=== PATIENT | male | born 1945 | race African-American/Black ===

== ENCOUNTER 2020-03-18 09:43 | Inpatient (IN) | payer OTHER ==
[~2020-03-18] VITALS: Ht 177.8 cm; Wt 107.3 kg
[2020-03-18 09:52] VITALS: BP 101/48
[2020-03-18] MEDS ORDERED: AMMONIUM LACTA385 GM TOP (10:48)
[2020-03-18] MEDS ORDERED: ALLOPURINOL 10100 M3 PO (10:48)
[2020-03-18] MEDS ORDERED: ASA81BEC PO (10:49)
[2020-03-18] MEDS ORDERED: REFRESH TEARS15 ML EA. EYE (10:52)
[2020-03-18] MEDS ORDERED: COLACE100 MG PO (10:53)
[2020-03-18] MEDS ORDERED: COREG6.25 MG PO (10:54)
[2020-03-18] MEDS ORDERED: DECADRON6 MG PO (10:57)
[2020-03-18 11:26] LABS: RBC 2.58 mil/uL (4.50-6.00)
[2020-03-18 11:28] LABS: ABSOLUTE NEUTROPHILS 9.9 thou/uL (1.4-8.2); BASOPHILS 0.2 % (0.0-2.0); EOSINOPHILS 0.1 % (0.0-3.0); HEMATOCRIT 22.8 % (42.0-52.0); HEMOGLOBIN 7.3 gm/dL (14.0-18.0); LYMPHOCYTES 5.1 % (24.0-44.0); MCH 28.3 pg (26.0-34.0); MCV 88.6 fL (80.0-100.0); MONOCYTES 5.9 % (1.0-8.0); PLATELET COUNT 228 thou/uL (150-400); POLYS 88.7 % (36.0-66.0); RDW 14.7 % (10.5-14.5); WBC 11.2 thou/uL (4.0-11.0)
[2020-03-18 11:40] LABS: CALCIUM 8.2 mg/dL (8.5-10.1); CREATININE 2.3 mg/dL (0.7-1.3); POTASSIUM 4.1 mmol/L (3.5-5.1)
[2020-03-18 11:45] LABS: ALBUMIN 2.4 g/dL (3.4-5.0); DIRECT BILIRUBIN 0.1 mg/dL (<0.1-0.2); TOTAL BILIRUBIN 0.4 mg/dL (0.2-1.0); TOTAL PROTEIN 6.7 g/dL (6.4-8.2)
[2020-03-18] MEDS ORDERED: NEURONTIN 400400 M1 PO (12:05)
[2020-03-18] MEDS ORDERED: GLUCOTROL5 MG PO (12:06)
[2020-03-18] MEDS ORDERED: HUMALOG100 UNIT/1 SUBQ (12:07)
[2020-03-18] MEDS ORDERED: LANTUS SUBQ (12:07)
[2020-03-18] MEDS ORDERED: LIDODERM1 EACH TOP (12:09)
[2020-03-18] MEDS ORDERED: LISINOPRIL20 MG PO (12:10)
[2020-03-18] MEDS ORDERED: ULTRAM 50MG TAB50 MG PO (12:11)
[2020-03-18] MEDS ORDERED: CRESTOR40 MG PO (12:11)
[2020-03-18 12:44] LABS: URINE BILIRUBIN NEGATIVE (Negative); URINE BLOOD 1+ (Negative); URINE CLARITY CLEAR; URINE COLOR YELLOW; URINE GLUCOSE-RANDOM* NEGATIVE (Negative); URINE KETONES NEGATIVE (Negative); URINE LEUKOCYTES-REFLEX NEGATIVE (Negative); URINE NITRITE-REFLEX NEGATIVE (Negative); URINE PROTEIN (DIPSTICK) NEGATIVE (Negative); URINE SPECIFIC GRAVITY 1.015 (1.005-1.035); URINE UROBILINOGEN 0.2 E.U./dl (0.2-1.0)
[2020-03-18 13:04] LABS: BACTERIA-REFLEX 1-9 Few /HPF (None Seen); CASTS None Seen /LPF (None Seen); MUCUS 4-6 Moderate strn/LPF (None Seen); SQUAMOUS 0-3 Few /LPF (0-3); URINE RBC 0-2 Rare /HPF (0-2); URINE WBC-REFLEX 0-5 Rare /HPF (0-5)
[2020-03-18 13:05] LABS: AMORPHOUS URATES Few /LPF (None Seen)
--- NOTE | 2020-03-18 14:22 | EKG ---
[place] [address] [facility] [place] [address] ELECTROCARDIOGRAM REPORT Name: STELLA GOMEZ Room #: REG DANE Reynoso#: [id number] Admission: 03/18/20 Attend Phys: Discharge: Date of : 43 Report #: [id number] [facility] ED Test Date: 2020-03-18 Test Time: 10:01:57 Pat Name: STELLA GOMEZ Department: Room: Gender: M Airplane Designer: ANA : 1945 Requested By: Gale Givens Order Number: [id number] MD: Dominick Bennett Measurements Intervals [place] Rate: 72 P: 17 DE: 160 QRS: -5 QRSD: 108 T: 18 QT: 404 QTc: 443 Interpretive Statements Sinus rhythm Left ventricular hypertrophy Borderline J Point elevation, lateral leads Baseline wander in lead(s) V3 No previous ECG available for comparison Electronically Signed On 03-18-2020 14:22:37 BULLDOZER MECHANIC by Dominick Bennett [email or web address] <ELECTRONICALLY SIGNED> By: Dominick Bennett MD, [facility] 03/18/20 1422 1001 1001 Dominick Bennett MD, FACC /EPI
[2020-03-18 15:05] LABS: % SATURATION 30 % (20-39); IRON 57 ug/dL (65-175); TIBC 187 ug/dL (250-450)
[2020-03-18 15:15] LABS: FOLIC ACID 6.9 ng/mL (8.6-58.9)
--- NOTE | 2020-03-18 17:42 | NUR ---
75 year old male who presents to ER with syncope. Pt was fine at [place] doing physical therapy when he had sudden collapse. Per NS unconscious for < 1 min then came back. Per [place] pt BP was elevated but no other symptoms. Patient admitted to Hospitalist Dr. Sherman with syncope and generalized weakness and low Hgb with suspected GI bleed. Differential: Arrhythmia, [place], CVA, anemia, GI bleed, UTI, pneumonia, Hx recent Covid +, Anemia. Patient is a resident of [facility] and has [place] listed as next of kin. Called [facility] at [phone] and spoke with nurse Allyson patient has a son named Memo Escobedo and his number is [phone]. Called and spoke to son Memo and states he has another brother who can be reached also and his name is: Kentrell Escobedo at [phone]. Patient was hospitalized last week at [facility] for COVID pneumonia. Prior to his admission to [facility] the patient was living alone in a home with no utilities. Family does NOT want patient to return to his home and it was on 03-06 the son Memo had to do a wellness check with EMS and at that time patient was sent to [facility]. Patient does have VA benefits. NOTE: PT and OT orders are in. Explained role of CM and notified son that CM will follow for anticipated discharge back to [facility]. Did speak with Registration and gave updated information on family contacts.
[2020-03-18 20:10] VITALS: BP 161/70
--- NOTE | 2020-03-18 20:12 | NUR ---
HANDOFF SENT TO 3W
[2020-03-18 21:00] VITALS: BP 161/70
[2020-03-18 21:30] VITALS: BP 171/86
[2020-03-18 22:30] VITALS: BP 168/81
[2020-03-19 00:41] VITALS: BP 169/89
--- NOTE | 2020-03-19 03:23 | NUR ---
PT ARRIVED ON THE UNIT FROM ER AT 2100. ALERT TO SELF. FORGETFULL. ABLE TO ANSWER YES OR NO QUESTIONS. PT STATED CAN'T REMEMBER FALLING. IV INTACT WITH FLUIDS INFUSING. ADMISSION DONE AND PT ORIENTED TO THE UNIT. FOLLEY INTACT ON ARRIVAL WITH ALMOST 2000CC OF YELLOW COLOR URINE OUTPUT. BSG CHECKED. PT ON A CLEAR LIQUID DIET. ON 2L OF O2. FALL PRECAUTION IN PLACE. ISOLATION MAINTAINED. WILL CONT WITH POC TILL EOS.
[2020-03-19 04:50] VITALS: BP 184/89
[2020-03-19 05:10] VITALS: BP 161/89
[2020-03-19 06:24] LABS: HEMATOCRIT 26.7 % (42.0-52.0); HEMOGLOBIN 8.5 gm/dL (14.0-18.0); MCH 28.7 pg (26.0-34.0); MCHC 31.9 g/dL (28.0-37.0); MCV 89.9 fL (80.0-100.0); RBC 2.97 mil/uL (4.50-6.00); RDW 14.7 % (10.5-14.5); WBC 9.2 thou/uL (4.0-11.0)
[2020-03-19 06:32] LABS: CALCIUM 8.1 mg/dL (8.5-10.1); CREATININE 1.4 mg/dL (0.7-1.3); POTASSIUM 4.8 mmol/L (3.5-5.1)
[2020-03-19 07:10] VITALS: BP 163/128; BP 163/178
[2020-03-19 15:07] VITALS: BP 176/81
--- NOTE | 2020-03-19 15:17 | NUR ---
INITIAL ASSESSMENT: Received consult. BETHANY reviewed chart and spoke with nursing and attending physician. Pt was admitted from [facility] due to GI bleed. Pt placed in Enhanced Isolation due to COVID-19. Pt is afebrile and on 2L of O2. Pt is on IV steroids. GI consulted. Pt to have colonoscopy tomorrow. BETHANY spoke with pt's son, Memo, via phone. Introduced role of BETHANY. Pt was hospitalized at [facility] for COVID and discharged to [facility]. Pt had first positive COVID test on 03/09. Pt's son states that plan is for pt to discharge back to [facility] when medically stable. Pt has been living at home alone. Pt was not taking care of himself and family is not sure of his prison plans. Pt has not had HH services or any other post-acute placement in the past. Pt's PCP is Dr. Ashutosh Jones at the [facility]. BETHANY faxed clinical info to [facility] post-acute liaison for review. BETHANY is following to assist as needed with discharge planning.
[2020-03-19 19:38] VITALS: BP 163/89
[2020-03-20 04:14] VITALS: BP 152/70
[2020-03-20 06:03] LABS: HEMATOCRIT 29.2 % (42.0-52.0); HEMOGLOBIN 9.4 gm/dL (14.0-18.0); MCH 29.7 pg (26.0-34.0); MCHC 32.2 g/dL (28.0-37.0); MCV 92.1 fL (80.0-100.0); RBC 3.18 mil/uL (4.50-6.00); RDW 15.2 % (10.5-14.5); WBC 12.7 thou/uL (4.0-11.0)
[2020-03-20 07:22] VITALS: BP 170/71
[2020-03-20 09:55] LABS: ALBUMIN 2.6 g/dL (3.4-5.0); CALCIUM 8.4 mg/dL (8.5-10.1); CREATININE 1.4 mg/dL (0.7-1.3); DIRECT BILIRUBIN 0.2 mg/dL (<0.1-0.2); PHOSPHORUS 3.2 mg/dL (2.5-4.9); POTASSIUM 5.4 mmol/L (3.5-5.1); TOTAL BILIRUBIN 0.5 mg/dL (0.2-1.0); TOTAL PROTEIN 6.9 g/dL (6.4-8.2)
--- NOTE | 2020-03-20 11:10 | NUR ---
CARE ASSUMED AT 0700, ALERT AND ORIENTED X3, DISORIENTED TO TIME. DENIES ANY PAIN, NAUSEA AND VOMITTING. PT IS ON ROOM AIR, NO SIGNS OF DISTRESS NOTED. NPO FOR POSSIBLE COLONOSCOPY TODAY. MERAZ IN PLACE, PATENT AND SECURED. FALL PRECAUTIONS IN PLACE. WILL CONTINUE TO MONITOR.
--- NOTE | 2020-03-20 14:54 | NUR ---
SW reviewed chart and spoke with nursing and attending physician. Pt remains in Enhanced Isolation due to COVID-19. Pt is afebrile and not requiring O2. Pt is on IV steroids. Pt is completing courses of Remdesivir and Ivermectin. Pt to have colonoscopy today per GI. BETHANY updated [facility] post-acute liaison. Plan is for pt to return to [facility] when medically stable. BETHANY is following to assist as needed with discharge planning.
[2020-03-20 15:22] VITALS: BP 195/98
[2020-03-20 20:31] VITALS: BP 189/83
[2020-03-21 04:25] VITALS: BP 181/88
--- NOTE | 2020-03-21 05:28 | NUR ---
NPO STATUS SINCE 2400 FOR EGD AND COLONOSCOPY. VSS OVERNIGHT, AFEBRILE, AND TELE SHOWS AFIB AT POINTS. MERAZ IN PLACE WITH GOOD RESULTS. PO MEDICATION TAKEN WHOLE. PT HAS SOME CONFUSION WITH DATES, BUT ALSO LESS IMPULSIVE THIS EVENING.
[2020-03-21 06:33] LABS: HEMATOCRIT 28.5 % (42.0-52.0); HEMOGLOBIN 9.1 gm/dL (14.0-18.0); MCV 90.8 fL (80.0-100.0); PLATELET COUNT 260 thou/uL (150-400); RBC 3.14 mil/uL (4.50-6.00); RDW 14.9 % (10.5-14.5); WBC 8.9 thou/uL (4.0-11.0)
[2020-03-21 06:50] LABS: FIBRINOGEN 359.5 mg/dL (210-360); INR 1.2; PROTIME 12.7 Seconds (9.3-11.4)
[2020-03-21 06:55] LABS: ALBUMIN 2.4 g/dL (3.4-5.0); CALCIUM 7.8 mg/dL (8.5-10.1); CREATININE 1.1 mg/dL (0.7-1.3); DIRECT BILIRUBIN 0.2 mg/dL (<0.1-0.2); POTASSIUM 5.2 mmol/L (3.5-5.1); TOTAL BILIRUBIN 0.4 mg/dL (0.2-1.0); TOTAL PROTEIN 6.5 g/dL (6.4-8.2)
[2020-03-21 07:25] VITALS: BP 190/100
[2020-03-21 08:57] LABS: METAMYELOCYTES 1 %
[2020-03-21 08:58] LABS: ABSOLUTE NEUTROPHILS 7.7 thou/uL (1.4-8.2); ANISOCYTOSIS 1+
--- NOTE | 2020-03-21 14:35 | NUR ---
CARE ASSUMED AT 0700, ALERT AND ORIENTED X3, DENIES ANY PAIN, NAUSEA AND VOMITTING. PT ON ROOM AIR, NO SIGNS OF DISTRESS. FALL PRECAUTIONS IN PLACE. PT PROGRESSING TOWARDS CARE
--- NOTE | 2020-03-21 15:34 | NUR ---
BETHANY reviewed chart and spoke with nursing and attending physician. Pt remains in Enhanced Isolation due to COVID-19. Pt is afebrile and not requiring O2. Pt is on IV steroids. Pt completing courses of Remdesivir and Ivermectin. Pt was to have an EGD/colonoscopy today. Pt was unable to complete the bowel prep. BETHANY discussed with attending physician. May try for EGD/colonoscopy on Tuesday, or pt can do as an outpatient. BETHANY provided update to [facility] post-acute liaison who states that they are able to accept pt back if he is ready for discharge over the weekend. Staff will need to fax finalize discharge orders/summary for review and contact Suha to coordinate discharge. BETHANY spoke with pt's son, Memo, to provide update. Pt's son is aware and agreeable with discharge plan. Pt's chart copied today. BETHANY is following and is available to assist as needed with discharge planning. [facility]-- Suha--
[2020-03-21 16:10] VITALS: BP 135/65
--- NOTE | 2020-03-21 18:16 | HC ---
[facility] [place] [address] CONSULTATION Name: STELLA GOMEZ Room #: 351- ADM IN M.R.#: [id number] Admission: 03/18/20 Attend Phys: Kit Sherman MD Discharge: Date of : 43 Report #: [id number] THIS REPORT FOR: cc: Miguel Stone James D. DO Geha, Daniel J. MD ~ DATE OF SERVICE: 03/19/2020 INFECTIOUS DISEASE CONSULTATION REASON FOR CONSULTATION: I was asked to evaluate concerning COVID-19 pneumonia. HISTORY OF PRESENT ILLNESS: The patient is a 75-year-old who was admitted through the Emergency Room from a long-term facility. He was diagnosed with COVID-19 on 03/09. He was performing his rehabilitation program when he became unresponsive. No specific injury identified. Denied any chest pain or palpitations. No gross seizure activity. He regained consciousness and was brought into the Emergency Room. No fever, chills or sweats. He has had no cough or sputum production. Denies headache, loss of taste or smell, nausea or abdominal pain. He has had loose stools. On presentation, his hemoglobin was 7.3. Stool for occult blood was positive. He was started on corticosteroids. Chest x-ray showed bilateral interstitial infiltrates. He was placed on 2 liters of oxygen per nasal cannula due to hypoxia. REVIEW OF SYSTEMS: A 14-point review of system was negative other than what has been described above. The patient during his evaluation was confused and was unable to give much detail regarding his presentation. PAST MEDICAL HISTORY: Diabetes, hypertension, gout. ALLERGIES: None known. MEDICATIONS: As noted on his MAR, now on Solu-Medrol. FAMILY HISTORY: Noncontributory. SOCIAL HISTORY: Nonsmoker, no significant alcohol intake. PHYSICAL EXAMINATION: VITAL SIGNS: Afebrile, hemodynamically stable. GENERAL: He is on 2 liters of oxygen per nasal cannula. SKIN: Without rash or decubitus. No palpable adenopathy. He was moderately obese. EYES: Without scleral icterus. MOUTH: Without mucositis. [facility] [address] [place] [address] CONSULTATION Name: STELLA GOMEZ Room #: 351-P [facility] [place] M.R.#: [id number] Admission: 03/18/20 Attend Phys: Kit Sherman MD Discharge: Date of : 43 Report #: [id number] NECK: Supple. LUNGS: Few crackles in the bases bilaterally. HEART: Regular, without murmur, gallop or rub. ABDOMEN: Obese, soft, and nontender. No hepatosplenomegaly or mass. GENITOURINARY: External genitalia without mass or lesion. RECTAL: Not performed. BACK: Spine was nontender to percussion with no CVA tenderness identified. NEUROLOGIC: Cranial nerves were intact. Able to move all extremities with normal strength. Sensation to touch, upper and lower extremities was within normal limits. Mood was alert, although confused. LABORATORY STUDIES: Reviewed. MICROBIOLOGY: Reviewed. CT scan of the head and chest x-ray reviewed. IMPRESSION: A 75-year-old presents with syncopal episode, now has altered mental status. This is in the setting of COVID-19 identified 10 days ago and now has bilateral pulmonary infiltrates. We would also be concerned about viral involvement including cardiac and brain tissue. He has associated anemia, diabetes, and hypertension. RECOMMENDATION: Given his high risk for progression along with his hypoxia and bilateral interstitial infiltrates, I would recommend continuing corticosteroids and antiviral therapy to include both remdesivir and ivermectin. He will remain on multivitamin program as well. Agree with GI evaluation of his anemia and potential blood loss source. Control blood glucose, and we will obtain serial laboratory studies, chest x-ray and continue monitoring on the COVID isolation unit. <ELECTRONICALLY SIGNED> By: Edgar Cox MD 03/21/20 1816 0102 0111 Edgar Cox MD /nt
[2020-03-21 20:21] VITALS: BP 157/84
[2020-03-22 04:55] VITALS: BP 180/90
--- NOTE | 2020-03-22 04:57 | NUR ---
ASSUEMD CARE OF PT AT 1900HRS. PT AOX2-3 AND LETS NEEDS BE KNOWN. FALL PRECAUTION IN PLACE. PT DENIES PAIN, NAUSEA OR SOA. ISOLATION MAINTAINED FOR COVID. IV REMDESIVIR CONTINUED. PT RUNS SR/SA ON TELE. ASSESSMENT CHARTED. PT WAS ABLE TO GET COMFORTABLE AND SLEEP PART OF THE SHIFT. WILL CONTINUE TO MONITOR.
[2020-03-22 06:36] LABS: ALBUMIN 2.3 g/dL (3.4-5.0); CREATININE 1.3 mg/dL (0.7-1.3); DIRECT BILIRUBIN 0.1 mg/dL (<0.1-0.2); PHOSPHORUS 2.3 mg/dL (2.6-4.7); POTASSIUM 4.9 mmol/L (3.5-5.1); TOTAL BILIRUBIN 0.4 mg/dL (0.2-1.0); TOTAL PROTEIN 6.5 g/dL (6.4-8.2)
[2020-03-22 07:54] VITALS: BP 186/101
--- NOTE | 2020-03-22 14:47 | NUR ---
CARE ASSUMED AT 0700, PT ALERT AND ORIENTED X3, CONFUSE AT TIMES. PT DENIES ANY PAIN, ANSUEA AND VOMITTING. PT IS ON ROOM AIR, NO SIGNS OF DISTRESS. PT WAS UP IN THE CHAIR FOR A COUPLE OF HOURS. INPATIENT CODER WENT IN TO CHECK UP ON PT AND SAW PT HAS HAD AN "ACCIDENT" on FLOOR, WE CLEAN PT UP, CHANGED HIS GOWN, BACK IN BED. DR. TIM MANRIQUE, STATED HE WANTS PT TO START BOWEL PREP TODAY AND CAN GO AHEAD A FINISH DRINKING THE REST OF THE GOLYTELY FROM TUESDAY, PT ON CLEAR LIQUID DIET. FALL PRECAUTIONS IN PLACE. WILL CONTINUE TO MONITOR.
[2020-03-22 14:59] VITALS: BP 145/66
[2020-03-22 19:41] VITALS: BP 177/82
--- NOTE | 2020-03-23 01:41 | NUR ---
PT TRANSFERRING TO BEDSIDE COMMODE WITH ASSIST AND IS TOLERATING FAIR. DENIES PAIN. RESTING COMFORTALY. NO NEEDS VOICED. CALL LIGHT WITHIN REACH. FREQUENT OBSERVATION.
[2020-03-23 03:59] VITALS: BP 189/84
[2020-03-23 05:08] LABS: ALBUMIN 2.2 g/dL (3.4-5.0); ANION GAP 7 mmol/L (7-16); BUN 27 mg/dL (7-18); CALCIUM 8.4 mg/dL (8.5-10.1); CHLORIDE 105 mmol/L (98-107); CO2 25 mmol/L (21-32); CREATININE 1.1 mg/dL (0.7-1.3); DIRECT BILIRUBIN < 0.1 mg/dL (<0.1-0.2); GLUCOSE 108 mg/dL (74-106); PHOSPHORUS 2.3 mg/dL (2.6-4.7); POTASSIUM 4.4 mmol/L (3.5-5.1); SGOT 20 U/L (15-37); SGPT 46 U/L (16-63); SODIUM 137 mmol/L (136-145); TOTAL BILIRUBIN 0.4 mg/dL (0.2-1.0); TOTAL PROTEIN 6.1 g/dL (6.4-8.2)
[2020-03-23 07:10] VITALS: BP 195/90
[2020-03-23 08:53] VITALS: BP 152/76
[2020-03-23 15:10] VITALS: BP 143/76
--- NOTE | 2020-03-23 15:40 | NUR ---
RN ASSUMED PT'S CARE AT 0700AM, PT IS A&OX2 ( PERSON AND PLACE ), PT IS UNDERDOING 2 DAY BOWEL PREP FOR EGD AND COLONSCOPY TOMORROW, WE ENCOURAGE PT TO FINISH PREP MEDICATION SOON POSSIBE , PT HAS SOFT STOOL TODAY, PT GETS UP TO BSC WITH ASSIST , PT WILL BE NPO AFTER [place],PT DENIES PAIN AND SOB AT THIS TIME.
[2020-03-23 19:43] VITALS: BP 168/79
--- NOTE | 2020-03-24 01:03 | NUR ---
PT TRANSFERRING TO BEDSIDE COMMODE WITH ASSIST AND IS TOLERATING FAIR. DENIES PAIN. RESTING COMFORTABLY. NO NEEDS VOICED. CALL LIGHT WITHIN REACH. FREQUENT OBSERVATION.
[2020-03-24 06:09] LABS: ALBUMIN 2.2 g/dL (3.4-5.0); CALCIUM 8.1 mg/dL (8.5-10.1); CREATININE 1.1 mg/dL (0.7-1.3); DIRECT BILIRUBIN 0.1 mg/dL (<0.1-0.2); POTASSIUM 4.2 mmol/L (3.5-5.1); TOTAL BILIRUBIN 0.5 mg/dL (0.2-1.0); TOTAL PROTEIN 6.1 g/dL (6.4-8.2)
--- NOTE | 2020-03-24 06:26 | NUR ---
ENEMA ADMINISTERED PER ORDER.
[2020-03-24 07:38] VITALS: BP 132/69
[2020-03-24 08:46] LABS: HEMATOCRIT 27.5 % (42.0-52.0); HEMOGLOBIN 8.9 gm/dL (14.0-18.0); MCHC 32.4 g/dL (28.0-37.0); MCV 89.6 fL (80.0-100.0); RBC 3.07 mil/uL (4.50-6.00); RDW 15.8 % (10.5-14.5); WBC 7.9 thou/uL (4.0-11.0)
--- NOTE | 2020-03-24 11:04 | NUR ---
Received awake on bed. Due medications given as prescribed. On nothing per orem, pt informed and aware; mouth care done. Assisted in ADLs. On room air. Vital signs stable. On telemetry; no complains and signs of chest pain, crushing sensation and heaviness. On blood sugar monitoring, taken and recorded accordingly. Pt scheduled for EGD/Colonoscopy today; consent to be signed; Enema done by night RN; tolerated well; output yellow liquid as per RN. With tang in place, draining well; output measured and recorded accordingly. Pt turned on his sides regularly. Falls bundle in place. No nausea, no vomiting and no abdominal pain noted. To continue monitoring patient. GI RN Jackie called, report given; a/w for Dr Muller, possible procedure this afternoon. No complains of pain made during assessment.
[2020-03-24 15:19] VITALS: BP 138/64
--- NOTE | 2020-03-24 15:56 | NUR ---
SW reviewed chart and spoke with nursing and attending physician. Pt remains in Enhanced Isolation due to COVID-19. Pt is afebrile and not requiring O2. Pt is on IV steroids. Pt has completed Remdesivir and Ivermectin. Pt to have EGD/colonoscopy today. Discharge back to [facility] is anticipated for tomorrow. SW updated [facility] post-acute liaison, who confirmed they are able to accept pt back tomorrow. BETHANY spoke with pt's son, Memo, via phone to provide update. Memo is aware and agreeable with discharge plan. BETHANY is following to assist as needed with discharge planning.
[2020-03-24 20:03] VITALS: BP 108/58
[2020-03-25 04:43] VITALS: BP 133/63
--- NOTE | 2020-03-25 06:34 | NUR ---
ASSESSMENTS CHARTED, MEDS CHARTED GIVEN. PATIENT RESTING IN BED DURING SHIFT. PATIENT ALERT AND ANSWERING APPROPRIATELY. GOT UP WITH ASSIST TO BSC. HAD ONE NONFORMED BM. PATIENT ATE BOX LUNCH WITHOUT GASTRIC DISTRESS. FALL PRECAUTIONS IN PLACE DURING SHIFT. DENIED PAIN.
[2020-03-25 07:43] VITALS: BP 138/70
[2020-03-25] MEDS ORDERED: CARVEDILOL12.5 MG PO (07:52)
[2020-03-25] MEDS ORDERED: LISINOPRIL40 MG PO (07:52)
[2020-03-25] MEDS ORDERED: PROTONIX 20 MG20 M1 PO (07:53)
[2020-03-25 08:52] VITALS: BP 138/70
--- NOTE | 2020-03-25 10:34 | NUR ---
DISCHARGE NOTE: BETHANY reviewed chart and spoke with nursing and attending physician. Pt remains in Enhanced Isolation due to COVID-19. Pt had EGD and colonoscopy yesterday. Pt is medically stable to discharge back to [facility] today. BETHANY faxed finalized discharge orders/summary to the facility and confirmed info was received with [facility] post-acute liaison. Wheelchair van transportation scheduled for 0151-1435 per facility's arrangements. BETHANY spoke with pt's son, Memo, via phone to provide update and notify of discharge plan. Memo is agreeable with plan. Chart copy requested. Nursing provided with number to call report. No aadditional SW needs identified at this time, but is available to assist should needs arise.
--- NOTE | 2020-03-25 11:24 | NUR ---
RN ASSUMED PT'S CARE AT 0700AM, PT IS A&OX2 ( PERSON AND PLACE ), PT'S VS ARE STABLE, PT IS ON ROOM AIR, PT DENIES PAIN AND SOB , RN HAS RECEIVED ORDER TO DC PT TO SNF ABOUT 1300PM.
--- NOTE | 2020-03-25 14:54 | NUR ---
PT WAS DC TO SNF BY W/C AT 1300PM, PT 'S PIV AND MERAZ CATHETER HAS REMOVAL , PT IS TOLERATED, RN HAS GINVING REPORTED .
--- NOTE | 2020-03-26 14:05 | NUR ---
[facility] ([facility]) FAXED CLINICAL VITALS TO [id number]. P [phone]; FAX [phone]
--- NOTE | 2020-03-26 14:56 | P ---
[facility] [place] [address] PROCEDURE REPORT Name: STELLA GOMEZ Room #: 351-P [facility] IN M.R.#: [id number] Admission: 03/18/20 Attend Phys: Kit Sherman MD Discharge: 03/25/20 Date of : 43 Report #: [id number] THIS REPORT FOR: cc: Miguel Stone James D. DO McElhinney, Christian C. MD ~ DATE OF SERVICE: 03/24/2020 PROCEDURE PERFORMED: Colonoscopy with polypectomies. HISTORY OF PRESENT ILLNESS: The patient is a 75-year-old male who was admitted for pneumonia, was noted to be anemic on admission with hemoglobin of 7.3, it is now 8.9. He was Hemoccult positive in the Emergency Room. He denies any obvious bright red blood per rectum or melena. No family history of colon cancer. The patient has never had a colonoscopy before. Upper endoscopy was just performed today. DESCRIPTION OF PROCEDURE: The risks and benefits of the procedure were explained to the patient's family, those risks including but not limited to bleeding, perforation and the risk of sedation. They understood these risks and gave informed consent. Sedation was given using propofol per anesthesia. Next, a digital rectal exam was initially performed, which was normal. Next, using a standard Olympus colonoscope, the scope was placed in the patient's anus and advanced under direct vision to the cecum. The overall prep was good. The cecum was normal. On the ileocecal valve, a 5 mm sessile polyp was noted. This was removed with cold forceps, otherwise normal. In the ascending colon, 2 colon polyps were noted, one was 4 mm in size, removed with cold forceps, the other was 6 mm and sessile and removed by snare cautery. In the transverse colon, 2 sessile polyps also noted ranging in size from 3-5 mm. The smallest was removed by cold forceps, the larger by snare cautery. Multiple diverticula were noted in the sigmoid colon, no evidence of inflammation. No evidence of bleeding. The rectal mucosa was normal. On retroflexion, no abnormalities were noted. The scope was then withdrawn and the procedure terminated. The patient tolerated the procedure well. IMPRESSION: 1. Small colonic polyps as described above. 2. Sigmoid diverticulosis. 3. Otherwise, normal colonoscopy. RECOMMENDATIONS: 1. Await biopsy results. 2. Repeat colonoscopy in 5 years. 3. Etiology of anemia and Hemoccult positive stools may be secondary to gastric erosions and gastritis. The plan is to treat the patient with PPI therapy as he [address] [address] PROCEDURE REPORT Name: STELLA GOMEZ Room #: 351-P [facility] IN M.R.#: [id number] Admission: 03/18/20 Attend Phys: Kit Sherman MD Discharge: 03/25/20 Date of : 43 Report #: [id number] may be back on aspirin in the near future and continue to monitor his hemoglobin. Thank you for allowing me to participate in his care. <ELECTRONICALLY SIGNED> By: Robbie Mckinnon MD 03/26/20 1456 1338 1353 Robbie Mckinnon MD /nt
--- NOTE | 2020-03-26 14:56 | P ---
[facility] [place] [address] PROCEDURE REPORT Name: STELLA GOMEZ Room #: 351-P [facility] IN M.R.#: [id number] Admission: 03/18/20 Attend Phys: Kit Sherman MD Discharge: 03/25/20 Date of : 43 Report #: [id number] THIS REPORT FOR: cc: Miguel Stone James D. DO McElhinney, Christian C. MD ~ DATE OF SERVICE: 03/24/2020 PROCEDURE PERFORMED: Upper endoscopy with biopsies. HISTORY OF PRESENT ILLNESS: The patient is a 75-year-old male who was admitted on 03/18/2020, was noted to be anemic. Hemoglobin is 7.3 on admission. No previous history of endoscopy. The patient denies any obvious history of bright red blood per rectum or melena. He was on aspirin on admission. No family history of colon cancer. Last hemoglobin today was 8.9. He was Hemoccult positive in the Emergency Room. He denies any heartburn or dysphagia. Plan is for EGD and colonoscopy today. DESCRIPTION OF PROCEDURE: The risks and benefits of the procedure were explained to the patient's family, those risks including but not limited to bleeding, perforation, the risk of sedation. They understood these risks and gave informed consent. Sedation was given using propofol per anesthesia. Next, using a standard Olympus upper endoscope, the scope was placed in the patient's mouth and advanced under direct vision through the esophagus, stomach and into the second portion of the duodenum. The esophagus was normal throughout. The GE junction was normal. A mild gastritis was noted in the gastric fundus and body. Several small erosions were noted in the gastric antrum. No evidence of bleeding. Biopsies were obtained to rule out H. pylori. The pylorus was normal and patent. The duodenal bulb, first and second portion were all normal. Random biopsies were also obtained to rule out the possibility of celiac sprue. The scope was then withdrawn and the procedure terminated. The patient tolerated the procedure well. IMPRESSION: 1. Gastritis with several small gastric erosions. 2. Otherwise, normal upper endoscopy. RECOMMENDATIONS: 1. Await biopsy results. 2. We will place the patient on PPI therapy instead of Pepcid. 3. We will proceed with colonoscopy next day. [address] [address] PROCEDURE REPORT Name: STELLA GOMEZ Room #: 351-P [facility] IN M.R.#: [id number] Admission: 03/18/20 Attend Phys: Kit Sherman MD Discharge: 03/25/20 Date of : 43 Report #: [id number] Thank you for allowing me to participate in his care. <ELECTRONICALLY SIGNED> By: Robbie Mckinnon MD 03/26/20 1456 1334 1345 Robbie Mckinnon MD /nt
== END 2020-03-25 13:00 | DRG 987 ==
LOC: ER 09:43 → EROBS 14:47 → 3W 14:47
PROVIDERS: Emergency Medicine; Specialist; ADMIT Hospitalist; ATTEND Hospitalist
PROC: XW033E5 Introduction of Remdesivir Anti-infective into Peripheral Vein, Percutaneous Approach, New Technology Group 5 (ICD-10-PCS; principal; 2020-03-18)
PROC: 0DB68ZX Excision of Stomach, Via Natural or Artificial Opening Endoscopic, Diagnostic (ICD-10-PCS; 2020-03-24)
PROC: 0DBK8ZZ Excision of Ascending Colon, Via Natural or Artificial Opening Endoscopic (ICD-10-PCS; 2020-03-24)
PROC: 0DBC8ZZ Excision of Ileocecal Valve, Via Natural or Artificial Opening Endoscopic (ICD-10-PCS; 2020-03-24)
DX: U07.1 COVID-19 (principal); J12.82 Pneumonia due to coronavirus disease 2019; K29.71 Gastritis, unspecified, with bleeding; K57.91 Diverticulosis of intestine, part unspecified, without perforation or abscess with bleeding; N17.9 Acute kidney failure, unspecified; R55 Syncope and collapse; D64.9 Anemia, unspecified; K59.00 Constipation, unspecified; E11.22 Type 2 diabetes mellitus with diabetic chronic kidney disease; I12.9 Hypertensive chronic kidney disease with stage 1 through stage 4 chronic kidney disease, or unspecified chronic kidney disease; N18.9 Chronic kidney disease, unspecified; M10.9 Gout, unspecified; K63.5 Polyp of colon; F03.90 Unspecified dementia, unspecified severity, without behavioral disturbance, psychotic disturbance, mood disturbance, and anxiety; Z79.82 Long term (current) use of aspirin; Z79.899 Other long term (current) drug therapy
CPT/HCPCS: 10879; 62110; 62900

== ENCOUNTER 2020-04-25 11:57 | Inpatient (IN) | payer OTHER ==
[~2020-04-25] VITALS: Ht 177.8 cm; Wt 108.9 kg
[~2020-04-25 11:57] MED LIST: ALLOPURINOL 10100 M3 PO; AMMONIUM LACTA385 GM TOP; ASA81BEC PO; CARVEDILOL12.5 MG PO; COLACE100 MG PO; COREG6.25 MG PO; CRESTOR40 MG PO; DECADRON6 MG PO; GLUCOTROL5 MG PO; HUMALOG100 UNIT/1 SUBQ; LANTUS SUBQ; LIDODERM1 EACH TOP; LISINOPRIL20 MG PO; LISINOPRIL40 MG PO; NEURONTIN 400400 M1 PO; PROTONIX 20 MG20 M1 PO; REFRESH TEARS15 ML EA. EYE; ULTRAM 50MG TAB50 MG PO
[2020-04-25] MEDS ORDERED: LASIX 40 MG TAB40 MG PO (12:28)
[2020-04-25] MEDS ORDERED: METFORMIN HCL500 M3 PO (12:31)
[2020-04-25] MEDS ORDERED: OYSTER SHELL C500 MG PO (12:32)
[2020-04-25 12:46] LABS: ABSOLUTE NEUTROPHILS 8.1 thou/uL (1.4-8.2); BASOPHILS 0.4 % (0.0-2.0); EOSINOPHILS 0.1 % (0.0-3.0); HEMATOCRIT 30.8 % (42.0-52.0); LYMPHOCYTES 6.2 % (24.0-44.0); MCH 29.5 pg (26.0-34.0); MCHC 32.4 g/dL (28.0-37.0); MCV 91.1 fL (80.0-100.0); MONOCYTES 2.4 % (1.0-8.0); PLATELET COUNT 165 thou/uL (150-400); POLYS 90.9 % (36.0-66.0); RBC 3.38 mil/uL (4.50-6.00); RDW 17.4 % (10.5-14.5); WBC 8.9 thou/uL (4.0-11.0)
[2020-04-25 13:10] LABS: ANION GAP 7 mmol/L (7-16); BUN 36 mg/dL (7-18); CALCIUM 8.3 mg/dL (8.5-10.1); CHLORIDE 104 mmol/L (98-107); CO2 29 mmol/L (21-32); CREATININE 2.4 mg/dL (0.7-1.3); GLUCOSE 178 mg/dL (74-106); POTASSIUM 3.9 mmol/L (3.5-5.1); SODIUM 140 mmol/L (136-145)
[2020-04-25 13:20] LABS: ALBUMIN 2.1 g/dL (3.4-5.0); SGOT 24 U/L (15-37); SGPT 31 U/L (16-63); TOTAL BILIRUBIN 0.5 mg/dL (0.2-1.0); TOTAL PROTEIN 5.5 g/dL (6.4-8.2); TROPONIN-I <0.06 ng/mL (<0.06)
[2020-04-25 13:44] LABS: URINE BILIRUBIN NEGATIVE (Negative); URINE BLOOD 1+ (Negative); URINE CLARITY CLEAR; URINE COLOR YELLOW; URINE GLUCOSE-RANDOM* NEGATIVE (Negative); URINE KETONES NEGATIVE (Negative); URINE LEUKOCYTES-REFLEX NEGATIVE (Negative); URINE NITRITE-REFLEX NEGATIVE (Negative); URINE PROTEIN (DIPSTICK) 2+ (Negative)
[2020-04-25 13:57] LABS: BACTERIA-REFLEX 1-9 Few /HPF (None Seen); CASTS None Seen /LPF (None Seen); CRYSTALS None Seen /LPF (None Seen); SQUAMOUS None Seen /LPF (0-3); URINE RBC 0-2 Rare /HPF (0-2); URINE WBC-REFLEX 0-5 Rare /HPF (0-5); YEAST-REFLEX Present (None Seen)
--- NOTE | 2020-04-25 14:31 | NUR ---
SPOKE WITH MARTY, SON, GAVE UDATE ON PT. STATUS
--- NOTE | 2020-04-25 14:42 | NUR ---
SPOKE TO JENNIFER NANCE AT [facility], UPDATED ON PT. STATUS AND THAT PT. WILL BE ADMITTED
[2020-04-25 15:13] VITALS: BP 146/59
--- NOTE | 2020-04-25 15:25 | EKG ---
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 : 1945 Requested By: Santy Lee Order Number: [id number] MD: Dominick Bennett Measurements Intervals [place] Rate: 78 P: 41 GA: 150 QRS: 11 QRSD: 87 T: 63 QT: 361 QTc: 412 Interpretive Statements Sinus rhythm Atrial premature complex Probable anteroseptal infarct, old Compared to ECG 03/18/2020 10:01:57 Atrial premature complex(es) now present Myocardial infarct finding now present Left ventricular hypertrophy no longer present ST (T wave) deviation no longer present Electronically Signed On 04-25-2020 15:25:03 OPTIONS ADVISOR by Dominick Bennett [email or web address] <ELECTRONICALLY SIGNED> By: Dominick Bennett MD, FAC 04/25/20 1525 1213 1213 Dominick Bennett MD, [facility] /EPI
[2020-04-25 17:14] VITALS: BP 157/67
--- NOTE | 2020-04-25 19:04 | NUR ---
PATIENT CAME TO THE FLOOR APPROX 1814. PATIENT BLOOD SUGAR LAST CHECKED IN ER AND STABLE. IV RIGHT HAND PATENT AND FLUIDS RUNNING. MERAZ PLACED IN ER AND PATENT. DINNER TRAY BRUNG UP FOR PATIENT. PATIENT A&OX4, NO SIGNS OF DISTRESS. WILL CONTINUE TO MONITOR.
[2020-04-25 20:00] VITALS: BP 148/90
[2020-04-26 05:13] VITALS: BP 126/56
[2020-04-26 06:52] LABS: CALCIUM 8.7 mg/dL (8.5-10.1); CREATININE 2.7 mg/dL (0.7-1.3); MAGNESIUM 1.4 mg/dL (1.8-2.4); POTASSIUM 4.2 mmol/L (3.5-5.1)
--- NOTE | 2020-04-26 07:32 | NUR ---
VSS-AFEBRILE. LUNGS CLEAR-ROOM AIR. CONFUSION, CAN BE REORIENTED. BLOOD SUGARS EVERY TWO HOURS PER ORDERS. FALL PRECAUTIONS IN PLACE.
[2020-04-26 07:39] VITALS: BP 129/76
[2020-04-26 11:42] LABS: HEMATOCRIT 24.9 % (42.0-52.0); HEMOGLOBIN 8.1 gm/dL (14.0-18.0); MCH 29.8 pg (26.0-34.0); MCHC 32.7 g/dL (28.0-37.0); MCV 91.1 fL (80.0-100.0); PLATELET COUNT 216 thou/uL (150-400); RBC 2.73 mil/uL (4.50-6.00); RDW 17.7 % (10.5-14.5); WBC 11.8 thou/uL (4.0-11.0)
[2020-04-26 13:11] LABS: ABSOLUTE NEUTROPHILS 10.1 thou/uL (1.4-8.2); NUCLEATED RBCS 2 /100WBC
[2020-04-26 13:13] LABS: ANISOCYTOSIS 1+
--- NOTE | 2020-04-26 16:29 | NUR ---
Assumed pt care this am, VS stable. Alert and oriented x 2, physical therapy has tried to work with he pt, pt is a max assists and would not help himself. Incontinent of bowel as well, FC in place. POC followed with no signs or vebalizations of distress noted.
[2020-04-27 15:43] VITALS: BP 126/63
--- NOTE | 2020-04-27 18:44 | NUR ---
PT A&OX4, CAN ANSWER ALL QUESTIONS, BUT BECOMES FORGETFUL AT TIMES. PT VSS, NO APPARENT PAIN. PATIENT FEET RED WITH EDEMA, SKIN TEAR ON LEFT HEEL. PATIENT LEGS IN PRAFO BOOTS. MERAZ INTACT, PATIENT HAD THREE, MEDIUM SOFT STOOLS. PATIENT BLOOD SUGARS HIGH DURING LUNCH AND DINNER, DOCTOR AWARE AND NEW ORDERS PLACED. PATIENT ON ROOM AIR. NO SIGNS OF DISTRESS. IV RIGHT FA, FLUIDS RUNNING. PATIENT TURNED OFTEN. WILL CONTINUE TO MONITOR.
[2020-04-27 20:00] VITALS: BP 174/82
[2020-04-27 23:05] VITALS: BP 135/70
[2020-04-28 01:10] VITALS: BP 147/87
--- NOTE | 2020-04-28 03:03 | NUR ---
CARE ASSUMED 1900, PT ALERT AND ORIENTED. TACHYCARDIC WITH HR IN 120s. PT REPORTED ALSO HEADACHE, FEVER OF 101.1, BG 402. TYLENOL GIVEN FOR FEVER, BG TREATED WITH 12 UNITS OF INSULIN AND CARPET INSPECTOR NOTIFIED. NONEW ORDERS. CURRENT TEMP 98.4., WITH HR IN 90s TO 80s; SR. WILL CONTINUE TO MONITOR AND FEVER AND FOLLOW POC.
[2020-04-28 05:52] LABS: HEMOGLOBIN 8.6 gm/dL (14.0-18.0); MCH 29.8 pg (26.0-34.0); MCV 90.3 fL (80.0-100.0); RBC 2.88 mil/uL (4.50-6.00); RDW 17.6 % (10.5-14.5)
[2020-04-28 06:00] LABS: CALCIUM 7.7 mg/dL (8.5-10.1); MAGNESIUM 1.5 mg/dL (1.8-2.4); POTASSIUM 3.5 mmol/L (3.5-5.1)
[2020-04-28 06:05] LABS: CREATININE 3.7 mg/dL (0.7-1.3)
[2020-04-28 07:55] VITALS: BP 153/81
--- NOTE | 2020-04-28 16:05 | NUR ---
INITIAL ASSESSMENT: SW reviewed chart and spoke with nursing. Pt was admitted from [facility] due to hypoglycemia. Pt is not ready for discharge today. SW provided update to [facility] post-acute liaison. train planner to fax updates to the [facility] for review. BETHANY left voice message for pt's son, Memo, to provide update and confirm discharge plan. BETHANY is following to assist as needed with discharge planning.
[2020-04-28 16:26] VITALS: BP 190/71
--- NOTE | 2020-04-28 16:28 | NUR ---
FAXED CLINICAL UPDATE TO [facility] OF RECEIVED CONFIRMATION AND SPOKE WITH AURELIO IN ADM..
[2020-04-28 17:31] LABS: PROT/CREAT RATIO 0.3; URINE CREATININE-RANDOM* 18.9 mg/dL; URINE PROTEIN-RANDOM* < 6.0 mg/dL (<11.9)
[2020-04-28 18:07] LABS: URINE COLOR YELLOW
[2020-04-28 18:08] LABS: URINE CLARITY CLEAR; URINE GLUCOSE-RANDOM* TRACE (Negative); URINE PROTEIN (DIPSTICK) 2+ (Negative)
[2020-04-28 18:09] LABS: URINE KETONES NEGATIVE (Negative)
[2020-04-28 18:10] LABS: URINE BILIRUBIN NEGATIVE (Negative); URINE BLOOD 2+ (Negative); URINE LEUKOCYTES-REFLEX NEGATIVE (Negative); URINE NITRITE-REFLEX NEGATIVE (Negative)
[2020-04-28 18:31] LABS: BACTERIA-REFLEX 1-9 Few /HPF (None Seen); CASTS None Seen /LPF (None Seen); SQUAMOUS None Seen /LPF (0-3); URINE RBC 0-2 Rare /HPF (0-2); URINE WBC-REFLEX 0-5 Rare /HPF (0-5); YEAST-REFLEX Present (None Seen)
[2020-04-28 18:32] LABS: CRYSTALS None Seen /LPF (None Seen)
--- NOTE | 2020-04-28 19:21 | NUR ---
Assumed pt care this am, VS stable stool and urine sent to the lab. Blood sugar checks done, medications given as per emar. Refused some meals, seen by woundcare. pOC followed with no signs or verbalizations of distress noted. FC in place draining yellow urine. endorsed to the night nurse.
[2020-04-28 20:00] VITALS: BP 120/53
[2020-04-29 05:14] VITALS: BP 159/91
--- NOTE | 2020-04-29 05:58 | NUR ---
Assumed pt care at 1900. A/OX2-3,confused but able to voice needs.Denies pain on assessment. VSS. Incontinent of bowel this shift,tang patent to DD with yellow urine. IVF infusing via LFA. Erythma noted on BLE,elevated on heel protectors. Tachy on telemetry,denies any distress. Fall precautions in place,will continue to monitor pt.
[2020-04-29 07:53] VITALS: BP 137/80
[2020-04-29 10:06] LABS: ALBUMIN 1.7 g/dL (3.4-5.0); CALCIUM 7.7 mg/dL (8.5-10.1); CREATININE 3.3 mg/dL (0.7-1.3); PHOSPHORUS 3.2 mg/dL (2.6-4.7); POTASSIUM 3.1 mmol/L (3.5-5.1)
--- NOTE | 2020-04-29 15:46 | NUR ---
Assumed pt care this am, blood sugar was low in the 40's, D10 administered as per emar, blood glucose came back to 128. 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 Insulin placed on hold at ths time. Wound care done, pain on the left lower ext is note, managed with medications. Was able to work with PT, sat on the recliner for most of the day. FC in place drainnig light yellow urine. POC followed, with no signs or verbalizations of distress noted.
--- NOTE | 2020-04-29 15:50 | NUR ---
CARE TEAM INDICATED THAT PT IS PROGRESSING TOWARD GOAL OF DISHCARGE. PLAN IS FOR PT TO RETURN TO [facility] ONCE MEDICALLY STABLE. PT ON IV ABX AT THIS TIME. LIASION AT [facility] UPDATED. CM TO FOLLOW INDICATED WITH DC PLANNING.
[2020-04-29 19:42] VITALS: BP 159/74
--- NOTE | 2020-04-30 03:59 | NUR ---
PT IS A/O X2. ROOM AIR. ST ON THE MONITOR. SOA WITH EXERTION. BP ELEVATED. PRAFO BOOTS IN PLACE AND LEGS ELEVATED ON PILLOWS. HOB ELEVATED. MERAZ IN PLACE DRAINING YELLOW URINE. INCONTINENT OF WATERY STOOL X1. FALL PRECAUTIONS IMPLEMENTED, CALL LIGHT IS WITHIN REACH. WILL CONTINUE TO MONITOR.
[2020-04-30 06:34] LABS: ALBUMIN 1.6 g/dL (3.4-5.0); CALCIUM 7.5 mg/dL (8.5-10.1); CREATININE 2.9 mg/dL (0.7-1.3); PHOSPHORUS 2.5 mg/dL (2.6-4.7); POTASSIUM 3.4 mmol/L (3.5-5.1)
[2020-04-30 06:56] LABS: MCH 29.1 pg (26.0-34.0); MCHC 32.2 g/dL (28.0-37.0); MCV 90.4 fL (80.0-100.0); RBC 3.09 mil/uL (4.50-6.00); RDW 17.1 % (10.5-14.5); WBC 8.3 thou/uL (4.0-11.0)
[2020-04-30 07:26] VITALS: BP 115/74
--- NOTE | 2020-04-30 10:27 | HC ---
[facility] [place] [address] CONSULTATION Name: STELLA GOMEZ Room #: 462- ADM IN M.R.#: [id number] Admission: 04/25/20 Attend Phys: Bob Dominguez MD Discharge: Date of : 43 Report #: [id number] THIS REPORT FOR: cc: Miguel Stone James D. DO Althoff, Jeffrey R. MD ~ DATE OF SERVICE: 04/28/2020 CHIEF COMPLAINT: Lower extremity ulcerations and cellulitis. HISTORY OF PRESENT ILLNESS: This is a 75-year-old male patient admitted to the hospital with ulceration of his left heel and cellulitis of the left lower extremity. The patient is a very poor historian and cannot provide much information about himself. He was apparently sent from a long-term with low blood glucose. It is unclear as to how long he has had the ulcers on his heels and the cellulitis. He does note that it is tender. 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 He had COVID-19 on 03/09/2020. SOCIAL HISTORY: The patient is a previous daily user of alcohol, has never been a smoker. No drug use. FAMILY HISTORY: Unknown. MEDICATIONS: Include allopurinol, enteric coated aspirin, ammonium lactate, calcium carbonate, docusate sodium, Lasix, gabapentin, glipizide, insulin, Lidoderm patch, lisinopril, metformin, rosuvastatin and tramadol, ceftriaxone, azithromycin per his medication list. ALLERGIES: No known drug allergies. REVIEW OF SYSTEMS: Very limited due to the patient being a very poor historian. All pertinent positives have been discussed in the history of present illness. Other systems are not obtainable due to his some level of dementia. PHYSICAL EXAMINATION: VITAL SIGNS: At this time include temperature 36.8, pulse 115, respiratory rate 22, blood pressure 190/71. GENERAL: This is a somewhat chronically ill-appearing male patient who appears to be in minimal distress. HEENT: Head normocephalic. Nose and throat clear. NECK: Supple. LUNGS: Clear. [facility] [address] [place] [address] CONSULTATION Name: STELLA GOMEZ Room #: 462-P ADM IN M.R.#: [id number] Admission: 04/25/20 Attend Phys: Bob Dominguez MD Discharge: Date of : 43 Report #: [id number] ABDOMEN: Obese, soft, nontender. EXTREMITIES: Lower extremities demonstrate diminished distal pulses. He has a significant cellulitis involving the left dorsal foot extending into the ankle and lower leg. The area is tender. He has unstageable pressure ulceration to the left posterior heel with some dry eschar and some blistering. The right side also demonstrates what appears to be a deep tissue injury with a small area of eschar making it unstageable to the posterior heel with minimal evidence of infection. NEUROLOGIC: The patient appears to move symmetrically. He is not oriented. LABORATORY DATA: Include sodium 137, potassium 3.5, chloride 102, CO2 of 25, BUN 51, creatinine 3.7, glucose 94, calcium is 7.7 with a white blood cell count of 7.0 with a hemoglobin of 8.6. CLINICAL IMPRESSION: 1. Cellulitis, left foot, ankle and lower leg. 2. Unstageable pressure ulcer to the left posterior heel. 3. Unstageable pressure ulcer to the right posterior heel. 4. Diabetes mellitus with peripheral neuropathy. 5. Peripheral vascular disease by clinical exam. 6. Renal insufficiency, acute versus chronic. 7. Communication disability versus dementia. RECOMMENDATIONS: At this point in time, we will agree with intravenous antibiotic therapy for treating the cellulitis. We will recommend Betadine paint to the areas of eschar on both heels. He will need PRAFO boots for pressure prophylaxis. Hopefully, we can dry the eschar and it will eventually peel-away, but we need to verify that he has adequate vascularity for wound healing. I would be difficult to consider any sort of angiography at this point in time due to his elevated creatinine and poor renal function. We will see if that clears with continued treatment. I have discussed this case with Dr. Villegas. I appreciate being asked to see the patient in consultation. <ELECTRONICALLY SIGNED> By: Uziel Aldridge MD 04/30/20 1027 [phone] Uziel Aldridge MD /nt
--- NOTE | 2020-04-30 14:31 | NUR ---
PT A&OX3-4, FORGET AND PERIODS OF CONFUSION, PAIN IN LEFT LEG. WOUND CARE COMPLETED TO [facility] AND PHOTOS TAKEN. PATIENT HAS RIGHT FA IV PATENT WITH FLUIDS RUNNING, MERAZ PATENT. PATIENT WORKED WITH THERAPY TODAY. PATIENT REPOSITIONED OFTEN. PATIENT HR TACHY 100-120S, DOCTOR AWARE, PATIENT STABLE AND SINUS RHYTHM. PATIENTS BREATHING IS SHALLOW AND SATS AROUND 91 PERCENT, PLACED ON 2L O2, DOCTOR AWARE. NO SIGNS OF DISTRESS. WILL CONTINUE TO [facility].
--- NOTE | 2020-04-30 15:52 | NUR ---
CARE TEAM HAD INDICATED THAT PT IS SCHEDULED TO HAVE AN ANGIOGRAM THIS DAY BUT IT WAS CANCLED RELATE TO HIS KIDNEY FUNCTION. PT CONTINUES ON IV ABX. CM TO FOLLOW INDICATED WITH DC PLANNING. PLAN IS FOR PT TO RETURN TO [facility] SKILLED ONCE MEDICALLY STABLE.
[2020-04-30 16:31] VITALS: BP 143/87
[2020-04-30 19:40] VITALS: BP 145/88
[2020-05-01 01:31] VITALS: BP 143/79
--- NOTE | 2020-05-01 03:10 | NUR ---
PT IS A/O X3 AND CURRENTLY ON BEDREST. 2 LITERS OF 02 PER NC. PT HR IS ELEVATED IN THE 110'S TO 120'S WITH PERIODIC EPISODES OF HR IN THE 160'S THAT QUICKLY LOWERS. PRINTED OUT TELE STRIP THAT SHOWS THIS AND PLACED IN CHART. C/O PAIN IN LEGS WITH MOVEMENT. PRN PAIN MEDICATION GIVEN DIRECTED. HS BS WNL. AFEBRILE THIS NOC. PAIN PATCH APPLIED TO LLE. PRAFO BOOTS IN PLACE. FALL PRECATIONS IMPLEMENTED, CALL LIGHT IS WITHIN REACH. WILL CONTINUE TO MONITOR.
[2020-05-01 06:23] LABS: ALBUMIN 1.6 g/dL (3.4-5.0); CALCIUM 7.3 mg/dL (8.5-10.1); CREATININE 2.8 mg/dL (0.7-1.3); PHOSPHORUS 3.1 mg/dL (2.6-4.7); POTASSIUM 3.6 mmol/L (3.5-5.1)
[2020-05-01 06:26] LABS: HEMATOCRIT 25.8 % (42.0-52.0); HEMOGLOBIN 8.3 gm/dL (14.0-18.0); MCH 29.4 pg (26.0-34.0); MCHC 32.1 g/dL (28.0-37.0); MCV 91.5 fL (80.0-100.0); RBC 2.82 mil/uL (4.50-6.00); RDW 17.5 % (10.5-14.5); WBC 7.4 thou/uL (4.0-11.0)
[2020-05-01 08:06] VITALS: BP 103/84
[2020-05-01 14:07] VITALS: BP 114/63
--- NOTE | 2020-05-01 15:21 | NUR ---
PT WITH FEVER THE LAST TWO DAYS. PT ON IV ABX. CARE TEAM MONITORING CR. PLAN IS FOR PT TO RETURN TO [facility] SKILLED ONCE MEDICALLY STABLE. CM TO FOLLOW INDICATED WITH DC PLANNING.
[2020-05-01 19:40] VITALS: BP 182/89
--- NOTE | 2020-05-01 20:04 | NUR ---
PT A&OX2-3, VSS, FEVER, PAIN IN LEFT LEG. WOUND CARES COMPLETED. PATIENT HAS FLUIDS RUNNING RIGHT AC. PATIENT TURNED OFTEN. PATIENT REMAINS SINUS TACHY 110-130S, DOCTOR AWARE. PATIENT GIVEN TYLENOL THIS AM AND MOST RECENT TEMP 97.1. PLAN IS TO GET RENAL STABLE TO HAVE ANGIOGRAM. PATIENT HAS MERAZ PATENT. NO SIGNS OF DISTRESS. WILL CONTINUE TO MONITOR.
[2020-05-02 05:56] LABS: ALBUMIN 1.6 g/dL (3.4-5.0); CALCIUM 7.3 mg/dL (8.5-10.1); CREATININE 2.6 mg/dL (0.7-1.3); PHOSPHORUS 2.3 mg/dL (2.5-4.9); POTASSIUM 3.5 mmol/L (3.5-5.1)
--- NOTE | 2020-05-02 05:57 | NUR ---
PT IS A/O X2 AND IS UP WITH MAX ASSIST. [address] ON THE MONITOR WITH EPISODES OF HR IN THE 150'S WITH EXERTION AND WITH PERIODS OF SLEEP. SOA WITH EXERTION AND DOESN'T NOT TOLERATE HOB TO BE LOWERED FOR CARES. MERAZ CATHETER IN PLACE DRAINING YELLOW URINE. C/O PAIN AT INSERTION SITE. INCONTINENT OF WATERY BROWN STOOL THIS EARLY AM. FALL PRECAUTIONS IN PLACE, CALL LIGHT IS WITHIN REACH.
[2020-05-02 07:28] VITALS: BP 129/63
--- NOTE | 2020-05-02 14:08 | 2DMMODE ---
[facility] [place] [address] 2 D/M-MODE ECHOCARDIOGRAM Name: STELLA GOMEZ Room #: 462-P ADM IN M.R.#: [id number] Admission: 04/25/20 Attend Phys: Bob Dominguez MD Discharge: Date of : 44 Report #: [id number] THIS REPORT FOR: cc: Miguel Stone James D. DO Santiago, Patrick MD [facility] ~ ADDENDUM APPROVED REPORT Study performed: 05/02/2020 12:55:41 EXAM: Comprehensive 2D, Doppler, and color-flow Echocardiogram Patient Location: Bedside Room #: 462 Status: routine BSA: 2.25 HR: 101 bpm BP: 129/63 mmHg Rhythm: Tachycardia Other Information Study Quality: Adequate Indications Diabetes Dyspnea Tachycardia 2D Dimensions RVDd: 44.21 mm IVSd: 12.36 (7-11mm) LVOT Diam: 21.82 (18-24mm) LVDd: 34.35 mm PWd: 11.39 (7-11mm) Ascending Ao: 30.60 (22-36mm) LVDs: 24.28 (25-40mm) Aortic Root: 32.52 mm IVC: 27.00 mm Volumes Left Atrial Volume (Systole) Single Plane 4CH: 53.18 mL Single Plane 2CH: 45.03 mL LA ESV Index: 24.00 mL/m2 Aortic Valve AoV Peak Soren.: 1.08 m/s AO Peak Gr.: 4.63 mmHg LVOT Max P.23 mmHg LVOT Max V: 0.90 m/s [facility] [address] [place] [address] 2 D/M-MODE ECHOCARDIOGRAM Name: STELLA GOMEZ Room #: 462-P [facility] IN .R.#: [id number] Admission: 04/25/20 Attend Phys: Gabriella Yusuf Discharge: Date of : 44 Report #: [id number] Vmax: 3.12 cm2 Pulmonary Valve PV Peak Soren.: 1.10 m/s PV Peak Gr.: 4.86 mmHg Tricuspid Valve TR Peak Soren.: 3.25 m/s TR Peak Gr.: 42.15 mmHg PA Pressure: 57.00 mmHg Left Ventricle The left ventricle is normal size. There is normal LV segmental wall motion. Mild concentric left ventricular hypertrophy. The left ventricular systolic function is normal. The left ventricular ejection fraction is within the normal range. LVEF is 55-60%. This study is not technically sufficient to allow evaluation of the LV diastolic function. Right Ventricle Right ventricle is dilated. Right ventricle is hypokinetic. Atria The left atrium size is normal. Right atrium is dilated. Aortic Valve The aortic valve is normal in structure. The Aortic valve is sclerotic. No aortic regurgitation is present. There is no aortic valvular stenosis. Mitral Valve The mitral valve is normal in structure. Trace mitral regurgitation. No evidence of mitral valve stenosis. Tricuspid Valve The tricuspid valve is normal in structure. There is mild tricuspid regurgitation. Estimated PAP 57 mmHg. There is moderate pulmonary hypertension. Pulmonic Valve The pulmonary valve is normal in structure. Trace pulmonic regurgitation. Great Vessels The aortic root is normal in size. The inferior vena cava is dilated with no inspiratory collapse. [facility] [address] [place] [address] 2 D/M-MODE ECHOCARDIOGRAM Name: STELLA GOMEZ Room #: 462 ADM IN .R.#: [id number] Admission: 04/25/20 Attend Phys: Gabriella Yusuf Discharge: Date of : 44 Report #: [id number] Pericardium Trace pericardial effusion. <Conclusion> Normal left ventricular size with mild concentric hypertrophy Ejection fraction 60% Right ventricle moderately dilated, moderate hypokineses Mild right atrial enlargement Color-flow Doppler study was performed of the aortic/mitral/tricuspid/pulmonary valve Normal aortic/mitral valve structure and function Moderate tricuspid valve insufficiency Pulmonary hypertension, PA pressure systolic estimated 57 mmHg Trace pericardial effusion <ELECTRONICALLY SIGNED> By: Dominick Bennett MD, [facility] 05/02/20 1408 1408 1408 Dominick Bennett MD, FACC /INF
--- NOTE | 2020-05-02 15:08 | NUR ---
FAXED CLINICAL UPDATE TO [facility] SPOKE WITH AURELIO IN ADM SHE RECEIVED UPDATE POSS DC EARLY NEXT WEEK.
--- NOTE | 2020-05-02 15:23 | NUR ---
CM FOLOWED UP WITH PT'S SON MARTY THIS AM AND PROVIDED CLINICAL UPDATE AND CONFIRMED THAT DESIRED DC PLAN IS FOR PT TO RETURN TO [facility] FOR SKILLED REHAB SERVICES. HE INDICATED THAT THEY ARE LOOKING TO HAVE PT REHAB TO AN ASSISTED/SENIOR HOUSING SETTING. HE INDICATED THAT THEY HAVEN'T LOOKED INTO ANY OF YET. CLINICAL UPDATE SENT TO [facility] INDICATING POSSIBLE DC BEGINIG OF NEXT WEEK. CM TO FOLLOW INDICATED WITH DC PLANNING.
[2020-05-02 15:56] VITALS: BP 174/97
--- NOTE | 2020-05-02 18:28 | NUR ---
ASSUMED CARE OF PATIENT AT SHIFT CHANGE. ASSESSMENT CHARTED. MEDICATIONS GIVEN PER MAR. VSS. PATIENT IS A&OX2-3 WITH SOME FORGETFULNESS. PATIENT APPEARS HARD OF HEARING. NURSING STAFF NEEDING TO SPEAK LOUDLY TO PATIENT. ONETIME DOSE OF DIGOXIN ADMINISTERED; HR IMPROVED TO HIGH 90'S. MERAZ INTACT. LEGS ELEVATED AND IN PRAFO BOOTS. PATIENT RESTED MOST OF DAY. TOLERATED MEAL WELL BUT HAD A POOR APPETITE. ONLY VOICED PAIN WHEN BEING REPOSITIONED. PATIENT VOICED NO FUTHER NEEDS. WILL CONTINUE TO MONITOR AND ENDORSED TO NOC. RN
[2020-05-02 20:27] VITALS: BP 169/85
--- NOTE | 2020-05-03 05:35 | NUR ---
ASSUMED CARE OF PT AT 1900HRS. PT AOX2 AND LETS NEEDS BE KNOWN AT TIMES. FALL PRECAUTION IN PLACE. PT DENIED PAIN OR NAUSEA THIS SHIFT. O2 CONTINUED AT 2L VIA NC. PT RAN SA AND ST ON TELE. TACHYCARDIA HAS IMPROVED THIS SHIFT AND HEART RATE WAS <110 BPM. PT WAS TURNED Q2H. PT WAS ABLE TO GET COMFORTABLE AND SLEEP PART OF THE SHIFT. VSS AND NO S/S OF ACUTE DISTRESS. WILL CONTINUE TO MONITOR.
[2020-05-03 06:55] LABS: ALBUMIN 1.6 g/dL (3.4-5.0); CALCIUM 7.5 mg/dL (8.5-10.1); CREATININE 2.2 mg/dL (0.7-1.3); PHOSPHORUS 2.4 mg/dL (2.6-4.7); POTASSIUM 3.8 mmol/L (3.5-5.1)
[2020-05-03 07:32] VITALS: BP 172/85
[2020-05-03 13:12] VITALS: BP 172/85
[2020-05-03 15:09] VITALS: BP 143/79
--- NOTE | 2020-05-03 16:18 | NUR ---
ASSUMED CARE OF PATIENT AT 0700. ASSESSMENT CHARTED. MEDICATIONS GIVEN PER MAR. VSS. PATIENT IS ALERT TO SELF AND PLACE BUT SOMEWHAT CONFUSED AND NEEDING REORIENTATION AND REPEATING/REMINDING. PATIENT VOICES PAIN ON LEGS AND L KNEE. LIDOCAINE PATCH APPLIED. PATIENT HAD A BM THIS A.M. APPETITE IS POOR THIS DAY. OFFERED REPOSITIONING EVERY 2 HOURS AND TURNED TOLERATED. WOUND CARE COMPLETED THIS SHIFT; PATIENT WAS MEDICATED FOR PAIN PRIOR TO CARE. LOWER EXTREMITIES ELEVATED IN PRAFO BOOTS. PATIENT DENIES ANY FURTHER NEEDS. FALL PRECAUTIONS REMAIN IN PLACE. WILL CONTINUE TO MONITOR AND FOLLOW PLAN OF CARE
[2020-05-03 20:27] VITALS: BP 178/107
[2020-05-03 22:30] VITALS: BP 137/81
--- NOTE | 2020-05-04 05:12 | NUR ---
Pt. has been up most of the night watching television. He offers no c/o pain. Bp elevated earlier this shift and Edelmira ACOSTA notified. New orders noted (see cpoe). Bp rechecked later and pt. did not require any hydralazine. See vs. Left forearm red and inflammed from iv site. Iv was discontinued. Pt. refused to be turned or repositioned. Bed alarm is on.
[2020-05-04 05:15] VITALS: BP 147/80
[2020-05-04 06:46] LABS: ALBUMIN 1.5 g/dL (3.4-5.0); CALCIUM 7.5 mg/dL (8.5-10.1); CREATININE 2.1 mg/dL (0.7-1.3); PHOSPHORUS 1.8 mg/dL (2.5-4.9); POTASSIUM 3.5 mmol/L (3.5-5.1)
[2020-05-04 07:38] VITALS: BP 150/74
[2020-05-04 15:17] VITALS: BP 140/88
[2020-05-04 20:00] VITALS: BP 145/79
--- NOTE | 2020-05-05 03:00 | NUR ---
Pt. became very confused during the night and a little agitated. He had taken his o2 off and would not let this nurse reapply it. O2 saturation was 77% on room air. I was able to convince patient to put O2 back on, but 02 was increased to 4 liters for a few hours. He did c/o pain and po tramadol given (see emar) with some relief. Bed alarm is on.
[2020-05-05 05:54] LABS: ALBUMIN 1.5 g/dL (3.4-5.0); CALCIUM 7.4 mg/dL (8.5-10.1); PHOSPHORUS 2.1 mg/dL (2.5-4.9); POTASSIUM 3.3 mmol/L (3.5-5.1)
--- NOTE | 2020-05-05 06:00 | NUR ---
Pt. alert and o2 saturation at 98% on 3 liters per nasal canula. Bed alarm is on.
[2020-05-05 07:20] VITALS: BP 154/88
[2020-05-05] MEDS ORDERED: FLUCONAZOLE 10100 MG PO (09:03)
[2020-05-05] MEDS ORDERED: PROTONIX 20 MG20 M1 PO (09:04)
[2020-05-05] MEDS ORDERED: DIGOXIN125 MCG PO (09:04)
[2020-05-05] MEDS ORDERED: ACETAMINOPHEN325 M1 PO (09:04)
[2020-05-05] MEDS ORDERED: PLAVIX 75 MG TA75 MG PO (09:07)
[2020-05-05] MEDS ORDERED: KEFLEX500 M1 PO (09:13)
[2020-05-05] MEDS ORDERED: DILTIAZEM ER180 M2 PO (09:20)
--- NOTE | 2020-05-05 09:48 | NUR ---
Assess for length of stay. Admit with hypoglycemia, ASHUTOSH. Upon further chart review, pt with bilateral unstagable heel ulcers followed by wound care. Had been eating 75-100% of meals, decreased past few days to less than 50%. Visit this am and pt working on breakfast. [place], did not state specific food requests. No further hypoglycemia. ASHUTOSH on CKD/ATN and renal labs showing improvement so would discontinue renal restriction since K and phos are low. No wt changes. Will add ensure enlive bid until intake picks back up. Physician has indicated protein calorie malnutrition: RD will defer. Likely discharge soon. Low nutrition risk with appropriate nutrition interventions in place
--- NOTE | 2020-05-05 09:52 | NUR ---
Recommend discontinue renal diet restriction. pt not eating well past several days, bilateral unstagable ulcers, and K/phos needing replacement.
--- NOTE | 2020-05-05 11:43 | NUR ---
Assumed pt care this am, blood sugar low gave juice sine pt is able to eat, went back to 91. Wound care done to BLE, FC draining yellow urine, incontinent of stool as well. Currently on 3 liters of O2 via NC, is SOB upon exertion. +2 edema noted on all extremities, worse on BLE. Eschar on heels noted, woumd care done. Q2 turns done at times since op would refuse. Lung sounds are diminished. Dr. Diaz informed, still proceded with DC, report given to nurse in the facility.l IV and FC to be removed, pick up truck driver is between 12:30 to 1 pm. POC followed with no signs or verbalizations if distress noted.
--- NOTE | 2020-05-05 12:12 | NUR ---
CARE TEAM INDICATED THAT PT IS MEDICALLY STABLE TO DISCHARGE BACK TO [facility] THIS DAY. CHART COPY ORDRED. ORDERS FAXED. VAN TRANSPORT WITH 3L O2 ARRANGED BETWEEEN 12:30 AND 1300. CM NOTIFIED PT AND HIS SON MARTY. THEY ARE AWARE AND AGREEABLE. REPORT TO BE CALLED TO . NO OTHER CM INTERVENTION INDICATED. CASE CLOSED.
== END 2020-05-05 13:45 | DRG 871 ==
LOC: ER 11:57 → 4W 15:19 → EROBS 15:19 → 4W 18:08
PROVIDERS: Hospitalist; Internal Medicine; Internal Medicine Nephrology; Nurse Practitioner; ADMIT Hospitalist; ATTEND Hospitalist
DX: A41.9 Sepsis, unspecified organism (principal); G92 Toxic encephalopathy; E43 Unspecified severe protein-calorie malnutrition; N17.9 Acute kidney failure, unspecified; L03.116 Cellulitis of left lower limb; D62 Acute posthemorrhagic anemia; I13.0 Hypertensive heart and chronic kidney disease with heart failure and stage 1 through stage 4 chronic kidney disease, or unspecified chronic kidney disease; I50.32 Chronic diastolic (congestive) heart failure; E78.5 Hyperlipidemia, unspecified; M10.9 Gout, unspecified; E11.42 Type 2 diabetes mellitus with diabetic polyneuropathy; E11.649 Type 2 diabetes mellitus with hypoglycemia without coma; F03.90 Unspecified dementia, unspecified severity, without behavioral disturbance, psychotic disturbance, mood disturbance, and anxiety; E11.22 Type 2 diabetes mellitus with diabetic chronic kidney disease; L89.620 Pressure ulcer of left heel, unstageable; L89.610 Pressure ulcer of right heel, unstageable; K27.9 Peptic ulcer, site unspecified, unspecified as acute or chronic, without hemorrhage or perforation; I27.20 Pulmonary hypertension, unspecified; K57.90 Diverticulosis of intestine, part unspecified, without perforation or abscess without bleeding; N18.2 Chronic kidney disease, stage 2 (mild); G89.29 Other chronic pain; E11.51 Type 2 diabetes mellitus with diabetic peripheral angiopathy without gangrene; Z68.34 Body mass index [BMI] 34.0-34.9, adult; Z86.16 Personal history of COVID-19; Z79.82 Long term (current) use of aspirin; Z79.4 Long term (current) use of insulin; Z79.899 Other long term (current) drug therapy
CPT/HCPCS: 10045

== ENCOUNTER 2020-05-07 19:33 | Emergency (ER) | payer OTHER ==
[~2020-05-07] VITALS: Ht 180.3 cm; Wt 122.5 kg
--- NOTE | ~2020-05-07 | EMS ---
[place] [id number] EMS Patient Care Report Name: STELLA GOMEZ Room #: REG DANE Reynoso#: [id number] Admission: 05/07/20 Attend Phys: Discharge: Date of : 43 Report #: [id number] THIS REPORT FOR: //name// Report Transmitted: 05/07/2020 19:15 EMS Care Summary [place], [place]/[facility] Incident [id number] @ 05/07/2020 19:00 Incident Location [id number] [place] [address] [address] Patient STELLA GOMEZ Female, 75 Years 1945 Patient Address [address] [place] [address] Patient History Dementia,Diabetes,Hypertension (HTN),Stroke/CVA,TIA,Urinary Tract Infection (UTI),Sepsis,Novel Coronavirus (COVID-19), Patient Allergies No known allergies, Patient Medications Tramadol, Coreg, Gabapentin, Rosuvastatin, Aspirin, Dexamethasone, Insulin, Lisinopril, Novolog, Glipizide, Lantus, Allopurinol, Chief Complaint abnormal labs Disposition Transported No Lights/[place] Dispatch Reason Sick Person Transported To [facility] Narrative RESPONDED TO SICK AT LONGTERM. UPON ARRIVAL PT FOUND LAYING IN BED ALERT AND ORIENTED. STAFF REPORTS PT HAD LABS DONE EARLIER TODAY AND THEY CAME BACK [address] [address] EMS Patient Care Report Name: STELLA GOMEZ Room #: REG DANE Reynoso#: [id number] Admission: 05/07/20 Attend Phys: Discharge: Date of : 43 Report #: [id number] WITH CRITICAL D-DIMER LEVELS. STAFF IS SENDING PT OUT FOR BLOOD CLOT/PULMONARY EMBOLISM ASSESSMENT. PT HAS NO COMPLAINTS OF PAIN WHEN ASKED. PT TEAM LIFTED TO COT. VITALS OBTAINED. PT WAS COVID POSITIVE IN FEBRUARY 2020 AND STAFF REPORT NOBODY IN THE FACILITY IS POSTIVE. PT TRANSPORTED TO [facility] WITH NO CHANGES. PT TEAM LIFTED TO BED AND HANDRAILS UP. REPORT GIVEN TO NURSE. Initial Vitals @19:18P: 97,CO: 7,SpO2: 84, @19:22P: 95,R: 18,BP: 113/54,CO: 7,SpO2: 98, @19:17P: 98,R: 18,BP: 126/75,Pain: 0/10,GCS: 15,SpO2: 85,Revised Trauma: 12, Assessments @19:12MENTAL:Person Oriented,Time Oriented,Event Oriented,Place Oriented,SKIN:HEENT:Head/Face: No Abnormalities,Eyes: No Abnormalities,Neck/Airway: No Abnormalities,LUNG SOUNDS:General: No Abnormalities,Left Upper: No Abnormalities,Right Upper: No Abnormalities,Left Lower: No Abnormalities,Right Lower: No Abnormalities,ABDOMEN:General: No Abnormalities,Left Upper: No Abnormalities,Right Upper: No Abnormalities,Left Lower: No Abnormalities,Right Lower: No Abnormalities,PELVIS//GI:Incontinence,EXTREMITIES:Left Leg: Edema,Right Leg: Edema,Left Arm: No Abnormalities,Right Arm: No Abnormalities,PULSE:NEURO:No Abnormalities,@19:20MENTAL:Time Oriented,Place Oriented,Person Oriented,Event Oriented,SKIN:HEENT:LUNG SOUNDS:General: No Abnormalities,Left Upper: No Abnormalities,Right Upper: No Abnormalities,Left Lower: No Abnormalities,Right Lower: No Abnormalities,ABDOMEN:General: No Abnormalities,Left Upper: No Abnormalities,Right Upper: No Abnormalities,Left Lower: No Abnormalities,Right Lower: No Abnormalities,PELVIS//GI:Incontinence,EXTREMITIES:Right Leg: Edema,Left Leg: Edema,Left Arm: No Abnormalities,Right Arm: No Abnormalities,PULSE:NEURO:No Abnormalities, Impression Need for continuous medical supervision Procedures @19:12ALS AssessmentResponse: UnchangedSucceeded Timeline 18:58,Call Received 18:58,Dispatch Notified 19:00,Dispatched 19:01,En Route 19:11,On Scene 19:12,At Patient 19:12,ALS Assessment,Response: UnchangedSucceeded, 19:17,BP: 126/75 M,PULSE: 98,RR: 18 R,SPO2: 85 Ox,ETCO2: ,BG: ,PAIN: 0,GCS: 15, 19:18,BP: / M,PULSE: 97,RR: R,SPO2: 84 Ox,ETCO2: ,BG: ,PAIN: ,GCS: , [facility] [address] [place] [address] EMS Patient Care Report Name: STELLA GOMEZ Room #: REG DANE Reynoso#: [id number] Admission: 05/07/20 Attend Phys: Discharge: Date of : 43 Report #: [id number] 19:19,Depart Scene 19:22,BP: 113/54 M,PULSE: 95,RR: 18 R,SPO2: 98 Ox,ETCO2: ,BG: ,PAIN: ,GCS: , 19:29,At Destination 19:50,Call Closed Disclaimer v1.1 Copyright 2020 [employer] This EMS Care Summary contains data elements from the applicable legal record (which may be displayed differently). It is designed to provide pertinent information for the following purposes: continuity of care, clinical quality, and state data reporting. The complete legal record is available to ED staff and administrators of the receiving hospital in [employer]'s Patient Tracker. All data is provided "as is."
[~2020-05-07 19:33] MED LIST changes: +ACETAMINOPHEN325 M1 PO; +DIGOXIN125 MCG PO; +DILTIAZEM ER180 M2 PO; +FLUCONAZOLE 10100 MG PO; +KEFLEX500 M1 PO; +LASIX 40 MG TAB40 MG PO; +METFORMIN HCL500 M3 PO; +OYSTER SHELL C500 MG PO; +PLAVIX 75 MG TA75 MG PO
[2020-05-07 20:31] LABS: ABSOLUTE NEUTROPHILS 5.3 thou/uL (1.4-8.2); BASOPHILS 1.3 % (0.0-2.0); EOSINOPHILS 1.2 % (0.0-3.0); HEMATOCRIT 23.2 % (42.0-52.0); HEMOGLOBIN 7.5 gm/dL (14.0-18.0); LYMPHOCYTES 13.1 % (24.0-44.0); MCH 29.7 pg (26.0-34.0); MCHC 32.2 g/dL (28.0-37.0); MCV 92.2 fL (80.0-100.0); MONOCYTES 4.5 % (1.0-8.0); PLATELET COUNT 280 thou/uL (150-400); POLYS 79.9 % (36.0-66.0); RBC 2.51 mil/uL (4.50-6.00); RDW 17.2 % (10.5-14.5); WBC 6.7 thou/uL (4.0-11.0)
[2020-05-07 20:42] LABS: APTT 30.3 Seconds (24.5-32.8); INR 1.3
[2020-05-07 20:45] LABS: ANION GAP 10 mmol/L (7-16); BUN 27 mg/dL (7-18); CALCIUM 7.9 mg/dL (8.5-10.1); CHLORIDE 109 mmol/L (98-107); CO2 22 mmol/L (21-32); GLUCOSE 235 mg/dL (74-106); POTASSIUM 3.5 mmol/L (3.5-5.1); SODIUM 141 mmol/L (136-145)
[2020-05-07 20:50] LABS: ALBUMIN 1.7 g/dL (3.4-5.0); SGOT 15 U/L (15-37); SGPT 16 U/L (16-63); TOTAL BILIRUBIN 0.4 mg/dL (0.2-1.0); TOTAL PROTEIN 6.4 g/dL (6.4-8.2); TROPONIN-I <0.06 ng/mL (<0.06)
[2020-05-07 21:40] LABS: URINE BILIRUBIN NEGATIVE (Negative); URINE BLOOD 2+ (Negative); URINE CLARITY SL CLOUDY; URINE COLOR YELLOW; URINE GLUCOSE-RANDOM* NEGATIVE (Negative); URINE KETONES NEGATIVE (Negative); URINE LEUKOCYTES-REFLEX NEGATIVE (Negative); URINE NITRITE-REFLEX NEGATIVE (Negative); URINE PROTEIN (DIPSTICK) 2+ (Negative); URINE SPECIFIC GRAVITY >= 1.030 (1.005-1.035); URINE UROBILINOGEN 0.2 E.U./dl (0.2-1.0)
[2020-05-07 22:18] LABS: BACTERIA-REFLEX 1-9 Few /HPF (None Seen); CASTS None Seen /LPF (None Seen); MUCUS 4-6 Moderate strn/LPF (None Seen); SQUAMOUS 0-3 Few /LPF (0-3); URINE RBC 3-10 Few /HPF (0-2); URINE WBC-REFLEX 0-5 Rare /HPF (0-5)
[2020-05-07 22:19] LABS: CRYSTALS None Seen /LPF (None Seen); YEAST-REFLEX Present (None Seen)
[2020-05-08 04:35] VITALS: BP 157/80
--- NOTE | 2020-05-08 07:08 | EKG ---
[place] [address] [facility] [place] [address] ELECTROCARDIOGRAM REPORT Name: STELLA GOMEZ Room #: DEP DAEN Reynoso#: [id number] Admission: 05/07/20 Attend Phys: Discharge: 05/08/20 Date of : 43 Report #: [id number] [facility] ED Test Date: 2020-05-07 Test Time: 20:28:42 Pat Name: STELLA GOMEZ Department: Room: Gender: M Hydrodynamics Teacher: : 1945 Requested By: Jorge A Mason Order Number: [id number] MD: Dominick Bennett Measurements Intervals [place] Rate: 91 P: 1 GA: 164 QRS: 3 QRSD: 93 T: 5 QT: 392 QTc: 483 Interpretive Statements Sinus rhythm Anteroseptal infarct, age indeterminate Compared to ECG 04/25/2020 12:13:38 Atrial premature complex(es) no longer present Myocardial infarct finding still present Electronically Signed On 05-08-2020 7:08:09 LAYER OUT PLATE GLASS by Dominick Bennett [email or web address] <ELECTRONICALLY SIGNED> By: Dominick Bennett MD, [facility] 05/08/20707 27 27 Dominick Bennett MD, FACC /EPI
== END 2020-05-08 04:43 | disposition still patient (30) ==
LOC: ER 19:33
PROVIDERS: Emergency Medicine
DX: R79.89 Other specified abnormal findings of blood chemistry (principal); R06.02 Shortness of breath; E11.9 Type 2 diabetes mellitus without complications; I10 Essential (primary) hypertension; Z79.899 Other long term (current) drug therapy; Z79.01 Long term (current) use of anticoagulants

== ENCOUNTER → 2020-06-04 | Outpatient (CLI) | payer OTHER ==
[~2020-06-04] VITALS: Ht 180.3 cm; Wt 73.0 kg
[2020-06-04] VITALS (9 sets, daily range): BP systolic 109–146; BP diastolic 54–88
[~2020-06-04] MED LIST changes: +ARTIFICIAL TEAR1510 OPHTHALMIC; +D3-501250 MCG PO; +IPRAT-ALBUT 0.5-3 ML INH; +SLOW FE142 MG PO; +SUPER THERAVIT1 EACH PO; +VITAMIN C500 M2 PO
[2020-06-04 09:33] LABS: HEMATOCRIT 28.2 % (42.0-52.0); HEMOGLOBIN 9.3 gm/dL (14.0-18.0); MCH 28.6 pg (26.0-34.0); MCHC 32.9 g/dL (28.0-37.0); MCV 86.9 fL (80.0-100.0); RBC 3.24 mil/uL (4.50-6.00); RDW 17.1 % (10.5-14.5); WBC 14.8 thou/uL (4.0-11.0)
[2020-06-04 09:42] LABS: CALCIUM 9.1 mg/dL (8.5-10.1); CREATININE 1.7 mg/dL (0.7-1.3); POTASSIUM 3.2 mmol/L (3.5-5.1)
== END | disposition home or self-care (01) ==
LOC: CATH 07:01
PROVIDERS: ATTEND Nuclear Medicine Nuclear Cardiology
DX: I70.248 Atherosclerosis of native arteries of left leg with ulceration of other part of lower leg (principal); L97.929 Non-pressure chronic ulcer of unspecified part of left lower leg with unspecified severity; I70.1 Atherosclerosis of renal artery; I11.0 Hypertensive heart disease with heart failure; I50.9 Heart failure, unspecified; I25.10 Atherosclerotic heart disease of native coronary artery without angina pectoris; E11.9 Type 2 diabetes mellitus without complications; M10.9 Gout, unspecified; D64.9 Anemia, unspecified; G47.33 Obstructive sleep apnea (adult) (pediatric); Z98.890 Other specified postprocedural states; Z79.899 Other long term (current) drug therapy; Z20.822 Contact with and (suspected) exposure to COVID-19; Z79.4 Long term (current) use of insulin; Z86.73 Personal history of transient ischemic attack (TIA), and cerebral infarction without residual deficits

== ENCOUNTER 2020-06-21 17:34 | Inpatient (IN) | payer OTHER ==
[~2020-06-21] VITALS: Ht 180.3 cm; Wt 103.4 kg
[2020-06-21 17:36] VITALS: BP 120/63
[2020-06-21 19:17] LABS: ABSOLUTE NEUTROPHILS 14.5 thou/uL (1.4-8.2); BASOPHILS 0.4 % (0.0-2.0); EOSINOPHILS 0.1 % (0.0-3.0); HEMATOCRIT 22.8 % (42.0-52.0); HEMOGLOBIN 7.3 gm/dL (14.0-18.0); LYMPHOCYTES 5.7 % (24.0-44.0); MCH 27.4 pg (26.0-34.0); MCHC 32.2 g/dL (28.0-37.0); MONOCYTES 6.5 % (1.0-8.0); PLATELET COUNT 337 thou/uL (150-400); POLYS 87.3 % (36.0-66.0); RBC 2.69 mil/uL (4.50-6.00); RDW 17.3 % (10.5-14.5); WBC 16.6 thou/uL (4.0-11.0)
[2020-06-21 19:23] LABS: ANION GAP 15 mmol/L (7-16); BUN 102 mg/dL (7-18); CALCIUM 8.4 mg/dL (8.5-10.1); CHLORIDE 93 mmol/L (98-107); CO2 23 mmol/L (21-32); CREATININE 11.9 mg/dL (0.7-1.3); GLUCOSE 157 mg/dL (74-106); POTASSIUM 5.7 mmol/L (3.5-5.1); SODIUM 131 mmol/L (136-145)
[2020-06-21 19:32] LABS: ALBUMIN 1.3 g/dL (3.4-5.0); MAGNESIUM 1.8 mg/dL (1.8-2.4); SGOT 169 U/L (15-37); SGPT 117 U/L (16-63); TOTAL BILIRUBIN 0.4 mg/dL (0.2-1.0); TROPONIN-I <0.06 ng/mL (<0.06)
[2020-06-21 19:37] LABS: URINE BILIRUBIN NEGATIVE (Negative); URINE BLOOD 3+ (Negative); URINE CLARITY CLOUDY; URINE COLOR BROWN; URINE GLUCOSE-RANDOM* NEGATIVE (Negative); URINE KETONES NEGATIVE (Negative); URINE NITRITE-REFLEX NEGATIVE (Negative); URINE PROTEIN (DIPSTICK) 3+ (Negative); URINE SPECIFIC GRAVITY 1.025 (1.005-1.035); URINE UROBILINOGEN 0.2 E.U./dl (0.2-1.0)
[2020-06-21 19:45] LABS: URINE LEUKOCYTES-REFLEX 1+ (Negative)
[2020-06-21 19:49] LABS: CASTS None Seen /LPF (None Seen); SQUAMOUS None Seen /LPF (0-3)
[2020-06-21 19:50] LABS: CRYSTALS None Seen /LPF (None Seen); URINE RBC 3-10 Few /HPF (0-2)
[2020-06-21] MEDS ORDERED: METFORMIN HCL500 M3 PO (20:10)
[2020-06-21] MEDS ORDERED: NOVOLOG100 UNIT/M SUBQ (20:11)
[2020-06-21] MEDS ORDERED: ULTRAM 50MG TAB50 MG PO (20:12)
[2020-06-21 20:53] VITALS: BP 141/69
--- NOTE | 2020-06-21 23:17 | NUR ---
PT ARRIVED WITH TECH FROM ED ON STRETCHER. ASSISTED OVER TO INPATIENT BED WITH ASSIST X 3. SKIN ASSESSMENT COMPLETED. A QUARTER SIZED RED BRUISE NOTED TO R LATERAL HIP. SHEARING TO COCCYX NOTED, AND FOAM DRESSING C/D/I. NO FAMILY PRESENT FOR ADMISSION ASSESSMENTS. NOTES REVIEWED. JAEM.
[2020-06-22 02:57] LABS: CALCIUM 7.6 mg/dL (8.5-10.1); CREATININE 11.6 mg/dL (0.7-1.3); POTASSIUM 5.5 mmol/L (3.5-5.1)
[2020-06-22 03:13] LABS: HEMOGLOBIN 7.7 gm/dL (14.0-18.0); MCH 27.2 pg (26.0-34.0); MCV 84.9 fL (80.0-100.0); RBC 2.83 mil/uL (4.50-6.00); RDW 17.3 % (10.5-14.5); WBC 12.7 thou/uL (4.0-11.0)
[2020-06-22 04:09] VITALS: BP 125/71
--- NOTE | 2020-06-22 05:28 | NUR ---
PT RESTING SINCE ADMISSION. AWAKENS TO VERBAL STIMULI, SPEECH GARBLED. HR INCREASED AT 0320, ST RATE IN 120'S. NO DISTRESS NOTED. NOTIFIED NURSE PRACTIONER AND NO ORDERS REC'D. WILL CONTINUE TO MONITOR.
[2020-06-22 08:41] VITALS: BP 118/63
--- NOTE | 2020-06-22 11:05 | EKG ---
[address] [place] [address] ELECTROCARDIOGRAM REPORT Name: STELLA GOMEZ Room #: 362-P ADM IN M.R.#: [id number] Admission: 06/21/20 Attend Phys: Sebastien Villegas MD Discharge: Date of : 43 Report #: [id number] [facility] ED Test Date: 2020-06-21 Test Time: 18:07:51 Pat Name: STELLA GOMEZ Department: Room: 362 Gender: M Brim Blocker: BENOIT : 1945 Requested By: Thomas Lee Order Number: [id number] MD: Jerson Ott Measurements Intervals Alicia Rate: 108 P: 21 LA: 154 QRS: -10 QRSD: 85 T: 45 QT: 312 QTc: 418 Interpretive Statements Sinus tachycardia Atrial premature complex Low voltage, precordial leads Probable anteroseptal infarct, old Compared to ECG 05/07/2020 20:28:42 Atrial premature complex(es) now present Low QRS voltage now present Sinus rhythm no longer present Myocardial infarct finding still present Electronically Signed On 06-22-2020 11:05:24 CDT by Jerson Ott [email or web address] <ELECTRONICALLY SIGNED> By: Jerson Ott MD 06/22/20 1105 06 180 Jerson Ott MD /EPI
[2020-06-22 11:47] VITALS: BP 108/64
[2020-06-22 13:52] LABS: % SATURATION 35 % (20-39); IRON 29 ug/dL (65-175); TIBC 82 ug/dL (250-450)
[2020-06-22 15:33] VITALS: BP 130/71
--- NOTE | 2020-06-22 19:37 | NUR ---
PATIENT HAS A FLAT AFFECT. RESPONSES VERY LITTLE TO INPUT. TURNED Q2. KEPT CLEAN AND DRY. MERAZ DRAINING CLOSE TO NO URINE. NEPHROLOGY SAW PATIENT TODAY. WILL CONT WITH PLAN OF CARE.
[2020-06-22 20:00] VITALS: BP 135/72
[2020-06-23 00:02] VITALS: BP 161/87
[2020-06-23 03:45] VITALS: BP 142/75
[2020-06-23 06:38] LABS: ALBUMIN 1.1 g/dL (3.4-5.0); CALCIUM 7.5 mg/dL (8.5-10.1); CREATININE 11.8 mg/dL (0.7-1.3); MAGNESIUM 1.7 mg/dL (1.8-2.4); TOTAL BILIRUBIN 0.4 mg/dL (0.2-1.0); TOTAL PROTEIN 6.8 g/dL (6.4-8.2)
--- NOTE | 2020-06-23 07:06 | NUR ---
PT MAKING SLOW PROGRESS TOWARDS GOALS. PT REPORTEDLY NONVERBAL. PT NONVERBAL UPON INITIAL ASSESSMENT. DID OPEN EYES TO COMMAND BUT DID NOT FOLLOW ANY OTHER COMMANDS. THIS AM, PT MOANING TO CARES, ESPECIALLY WITH TURNING. HE ALSO WAS ABLE TO STATE HIS NAME CORRECTLY THOUGH STILL VERY DROWSY. WAS NOT ORIENTED TO ANYTHING ELSE. CONTINUE TO MONITOR.
[2020-06-23 07:42] VITALS: BP 134/73
--- NOTE | 2020-06-23 15:33 | NUR ---
INITIAL ASSESSMENT: Received consult for hospice house eval. BETHANY reviewed chart and spoke with nursing and attending physician. Pt was admitted from [facility] due to renal failure. Pt with hx of COVID in February in 2019 and hx of CVA. Pt requires total care at the facility. Pt is a DNR and family are agreeable with referral to the Hospice. BETHANY met with pt and two sons (Memo and Kentrell) at bedside. Introduced role of SW. Both pt's sons verbalized understanding and are agreeable with referral. BETHANY explained process for referral and evaluation. BETHANY faxed referral to Hospice and spoke with JENNIFER Blakewomen designer. Onsite evaluation completed. Pt does not meet admission criteria for the hospice house at this time. standard machine stitcher to do re-evaluation tomorrow morning around 1000. BETHANY updated pt's nurse and attending physician. BETHANY also updated [facility] post-acute liaison. Outside the Hospital DNR form placed on pt's chart for physician signature. BETHANY is following to assist as needed with discharge planning.
--- NOTE | 2020-06-23 19:37 | NUR ---
ASSUMED PATIENT CARE AT 0700. OPEN EYE TO VOICE AT 0800. PATIENT STARTED MORE ALERT AFTER 1000 AND TALK TO FAMILY MEMBERS. HOSPICE HOUSE CAME IN SEE PATIENT. WILL BACK [place] TOMORROW. SLOWLY TOWARDS POC GOALS.
[2020-06-23 20:04] VITALS: BP 128/63
[2020-06-24 04:00] VITALS: BP 124/68
[2020-06-24 05:06] LABS: CALCIUM 7.7 mg/dL (8.5-10.1); CREATININE 12.1 mg/dL (0.7-1.3); PHOSPHORUS 7.5 mg/dL (2.5-4.9); POTASSIUM 5.1 mmol/L (3.5-5.1)
--- NOTE | 2020-06-24 06:35 | NUR ---
PT MAKING POOR PROGRESS TOWARDS GOALS. ORIENTED TO NAME ONLY. DROWSY OR SLEEPING THROUGHOUT THE NIGHT. ONLY TOOK SMALL SIPS OF WATER.
[2020-06-24 07:38] VITALS: BP 122/70
[2020-06-24] MEDS ORDERED: MSL20MG/ML SUBLING (12:08)
[2020-06-24] MEDS ORDERED: LORAZEPAM I2 MG/1 M2 SUBLING (12:08)
--- NOTE | 2020-06-24 16:13 | NUR ---
BETHANY reviewed chart and spoke with nursing and attending physician. Pt was re-evaluated by spring coiler, Lou, earlier today. BETHANY left several messages for Lou to follow up on eval to know the determination by the hospice house, in order to facilitate discharge. Received call back from Lou, who states that pt's family want him to discharge home with hospice, in order to ensure that all of pt's family are able to visit pt. The DME is to be delivered to pt's son's home this evening. MATIAS spring coiler will admit pt on service tomorrow evening at 1700. SW to arrange ambulance transportation for 1500. BETHANY spoke with pt's son, Memo, to confirm discharge plan. Memo confirms plan and is agreeable with 1500 discharge tomorrow. Memo to provide BETHANY with the home address where pt will be going. Outside the hospital DNR form placed on pt's chart. Attending physician and nursing updated. BETHANY notified [facility] post-acute liaison of pt's discharge disposition. BETHANY is following to assist as needed with discharge planning.
[2020-06-24 16:23] VITALS: BP 136/74
--- NOTE | 2020-06-24 18:25 | NUR ---
ASSUMED PATIENT CARE AT 0700. AWAKE. GENERLIZED EDEMA. PATIENT DENAIES PAIN. Q2H TURN. FAMILY AT BED SIDE. NOT TOWARDS POC GOALS.
[2020-06-24 19:25] VITALS: BP 139/64
[2020-06-24 22:12] VITALS: BP 127/73
--- NOTE | 2020-06-24 22:29 | NUR ---
PT TRANSFERRED FROM [facility] AT AROUND 2200HRS. PT ALERT TO SELF AND PLACE.HE IS CONFUSED ASKING IF HE WAS IN A WRECK OR SOMETHING.HE IS OTHERWISE CALM AND PLEASNT. ON FOR COMFORT.NATALIIA HEELS OFFLOADED.PT C/O PAIN TO L ELBOW, PILLOW GAVE HIM RELIEF.MERAZ WITH DARK OSIRIS URINE. WILL CONTINUE TO CLOSELY MONITOR AND PROVIDE NECESSARY COMFORT.
[2020-06-25 07:50] VITALS: BP 111/61
[2020-06-25 13:11] VITALS: BP 111/61
[2020-06-25 13:12] VITALS: BP 111/61
--- NOTE | 2020-06-25 13:22 | NUR ---
ON-GOING ASSESSMENT: CM REVIEWED CHART. PT TRANSFERED FROM 3W TO 4S. PLANS ARE FOR PATIENT TO GO HOME TO HIS SON HOUSE WITH HOSPICE SERVICES THROUGH HOSPICE. PER DOCUMENTATION EQUIPMENT WAS ALREADY DELIVERED TO SONS HOME YESTERDAY. CM SPOKE WITH OLDEST SON/DPOA MARTY TO CONFIRM PLANS IS STILL FOR PT TO RETURN TO HIS SONS HOME WITH HOSPICE SERVICES PER FAMILY REQUEST. HE REPORTS THIS IS STILL THE PLAN AND THE ADDRESS FOR HIS BROTHERS HOME IS [address] [place] [address]. ISATU SPOKE WITH NARCISO MORELOS AT [facility] WHO CONFIRMS THIS IS THE PLAN AND SHE IS WORKING ON MEDICATIONS NOW FOR HIM TO GET ADMITTED TODAY. PLANS WERE FOR PATIENT TO HAVE AMBULANCE TRANSPORTATION AROUND 1500 AND THEIR HOSPICE NURSE WILL ADMIT HIM TO SERVICES THIS EVENING AROUND 1700. CM FAXED [facility] FORM AND CONTACTED [facility] AND ARRANGED AMBULANCE FOR 1500. MARTY PTS SON STATES HE NOTIFIED HIS BROTHER. OUTSIDE DNR FORM IS COMPLETED AND ON THE FRONT OF THE CHART. CM FAXED D/C ORDERS TO HOSPICE AND CONFIRMED THEY RECEIVED IT. TAMY FROM [facility] FAXED OVER DPOA PAPERWORK FOR PATIENT AND IT IS PLACED ON THE CHART. FAMILY AND PT REPORT NO FURTHER NEEDS FROM CM PRIOR TO DISCHARGE. BEDSIDE RN AWARE OF PLAN. CM VERIFIED WITH HOSPICE AND NO NEEDS FOR REPORT SINCE PT IS GOING HOME.
--- NOTE | 2020-06-25 14:11 | NUR ---
Note Given: Y Facility List Provided:Y Facility Nadeen: None chosen at this time Bruna Aldrich NP discussed BPCI with this pt 06/23/2020
--- NOTE | 2020-06-25 14:30 | NUR ---
Received awake on bed. On comfort care. On MS, not on telemetry; no complains and signs of chest pain, crushing sensation and heaviness. On O2 at 2lpm via nasal cannula. On pureed diet- assisted and encouraged in eating and drinking; no nausea, no vomiting and no abdominal pain noted. With tang in place- draining well; output measured and recorded accordingly. With generalized edema noted- repositioned regularly. With SL at R FA. With wound at buttocks and boggy heels- offloaded; pt seen and examined by wound nurse Romario- dressing changed and photo taken. On low airloss mattress. As per CM, patient to be discharged today to home with hospice- Dr Dominguez informed re: this. Patient kept comfortable. Complained of pain, due PRN PO meds given as prescribed. With son at bedside- update re: plan of care. To continue monitoring patient.
== END 2020-06-25 15:30 | disposition hospice, home (50) | DRG 871 ==
LOC: ER 17:34 → 3W 20:10 → EROBS 20:10 → 3W 22:45 → 4S 06-24 21:49
PROVIDERS: Hospitalist; Nurse Practitioner Family; Physician Assistant; ADMIT Internal Medicine; ATTEND Internal Medicine
DX: A41.9 Sepsis, unspecified organism (principal); J18.9 Pneumonia, unspecified organism; G92 Toxic encephalopathy; E43 Unspecified severe protein-calorie malnutrition; N18.6 End stage renal disease; N17.9 Acute kidney failure, unspecified; N39.0 Urinary tract infection, site not specified; I13.2 Hypertensive heart and chronic kidney disease with heart failure and with stage 5 chronic kidney disease, or end stage renal disease; Z20.822 Contact with and (suspected) exposure to COVID-19; K59.00 Constipation, unspecified; M10.9 Gout, unspecified; G47.33 Obstructive sleep apnea (adult) (pediatric); I50.9 Heart failure, unspecified; K57.90 Diverticulosis of intestine, part unspecified, without perforation or abscess without bleeding; D64.9 Anemia, unspecified; E87.5 Hyperkalemia; E11.22 Type 2 diabetes mellitus with diabetic chronic kidney disease; T81.89XA Other complications of procedures, not elsewhere classified, initial encounter; Y83.8 Other surgical procedures as the cause of abnormal reaction of the patient, or of later complication, without mention of misadventure at the time of the procedure; Z51.5 Encounter for palliative care; R53.81 Other malaise; E11.649 Type 2 diabetes mellitus with hypoglycemia without coma; Z66 Do not resuscitate; E11.42 Type 2 diabetes mellitus with diabetic polyneuropathy; L98.499 Non-pressure chronic ulcer of skin of other sites with unspecified severity; Z79.82 Long term (current) use of aspirin; Z86.16 Personal history of COVID-19; Z86.73 Personal history of transient ischemic attack (TIA), and cerebral infarction without residual deficits; Y92.89 Other specified places as the place of occurrence of the external cause; Z79.899 Other long term (current) drug therapy
CPT/HCPCS: 10102; 10779; 10879